=== PATIENT | male | born 1935 | race Caucasian/White ===

== ENCOUNTER → 2017-07-02 | Outpatient (CLI) | payer MEDICARE ==
[2017-07-02 16:19] LABS: Anisocytosis Slight; CH 28.1; CHCM 33.9; HCT 47.9 % (39.0-53.0); HDW 3.18; HGB 15.3 gm/dL (13.0-17.5); MCH 26.9 pg (25.0-35.0); MCV 83.9 fL (80.0-100.0); Mean Platelet Volume 8.1; RBC 5.71 m/uL (4.30-5.90); RDW 16.2 % (11.5-15.5); WBC 6.9 k/uL (3.8-10.6)
[2017-07-02 16:36] LABS: Anion Gap 9 mmol/L; Blood Urea Nitrogen 23 mg/dL (9-20); Carbon Dioxide 25 mmol/L (22-30); Chloride 110 mmol/L (98-107); Non-African American GFR(MDRD) 58 (>60 ml/min/1.73 sqM); Potassium 4.4 mmol/L (3.5-5.1); Sodium 144 mmol/L (137-145)
== END | disposition home or self-care (01) ==
LOC: LABWHC1 15:37 → LABPAT 15:37
PROVIDERS: ATTEND Internal Medicine Interventional Cardiology
DX: Z01.812 Encounter for preprocedural laboratory examination (principal); I25.10 Atherosclerotic heart disease of native coronary artery without angina pectoris
CPT/HCPCS: 36415; 80051; 82565; 84520; 85027

== ENCOUNTER → 2017-07-22 | Day surgery (SDC) | payer MEDICARE ==
[2017-07-20 13:03] VITALS: BMI 32.1
[~2017-07-22] MED LIST: ALPRAZolam 0.25 MG TAB PO PRN; ALPRAZolam 0.5 MG TAB PO PRN; ASPIRIN 325 MG TAB PO STA; ATORVASTATIN 80 MG TAB PO STA; HEPARIN SODIUM 1,000 UN/ML (10ML VL) ONE; IODIXANOL 320 MG/ML 100 ML INTRAARTER ONE; LIDOCAINE 2% INJ 20 MG/ML (20 ML MDV) ONE; LIDOCAINE 2% INJ 20 MG/ML SQ ONE; MIDAZOLAM 2 MG/2 ML VIAL ONE; NITROGLYCERIN SL TABS 0.4 MG TAB SUBLINGUAL PRN; SODIUM CHLORIDE 0.9% 1,000 ML IV SCH; SODIUM CHLORIDE 0.9% 1,000 ML in EMPTY BAG 1 BAG IV ONE; VERAPAMIL 2.5 MG/ML 2 ML AMP ONE; diphenhydrAMINE 50 MG/ML 1 ML VIAL IVP ONE; diphenhydrAMINE 50 MG/ML 1 ML VIAL ONE
[2017-07-22 08:26] VITALS: TEMP 97.7
[2017-07-22] MEDS: IODIXANOL 320 MG/ML 100 ML INTRAARTER ONE ×2 (09:34→10:32)
[2017-07-22] MEDS: MIDAZOLAM 2 MG/2 ML VIAL IV ONE ×2 (09:48→09:51)
[2017-07-22] MEDS: VERAPAMIL SYRINGE (5 MG/10 ML) INTRAARTER ONE ×2 (09:54→10:23)
--- NOTE | 2017-07-22 11:34 | CC ---
CARDIAC CATHETERIZATION REPORT DATE OF SERVICE: 07/22/2017 PROCEDURE: Left coronary angiography. Performed by Dr. Pa Alexander. CLINICAL INFORMATION: Filemon Dukes is 82-year-old gentleman with history of hypertension, hyperlipidemia, symptoms of exertional chest pressure and shortness of breath suggestive of angina. He also has a sick sinus syndrome and a permanent pacemaker. He has significant tortuosity in his iliac system and therefore was advised a cardiac cath from the left radial approach and brought in for the procedure electively after explanation of risks, benefits, and options. PROCEDURE NOTE: Under local anesthesia and strict aseptic precautions, a 6-Malay introducer was placed in the left radial artery. I used a Sunny catheter to perform selective coronary angiography of the RCA. A standard left Delphine catheter was used for selective injection of the left coronary artery. Because of tortuosity and spasm, I could not get into the LV. Although I crossed it with a wire, I could not advance the pigtail catheter. However, I did not check LV pressures. He did not have significant CAD and we will do an echocardiogram to assess LV function. The sheath was taken out and a TR band applied as per protocol. The saturation of the fingers of the left hand was 94%. Patient tolerated the procedure well without complications. The moderate conscious sedation time was 46 minutes. CORONARY ANGIOGRAPHY FINDINGS: RIGHT CORONARY ARTERY: Technically a codominant vessel. No significant disease in the proximal, mid or distal portion and distally bifurcates into PDA and PLV, both of which supply a fair amount of myocardium. No significant disease, only minor irregularities were noted and this is a codominant vessel. LEFT MAIN CORONARY ARTERY: Short, patent, disease-free vessel that bifurcates into LAD and circumflex. LEFT ANTERIOR DESCENDING CORONARY ARTERY: Good caliber vessel, extends along the anterior, supplies a sizable amount of myocardium, gives of diagonal branches proximally. A good-sized septal branch runs all the way to the apex and curves over the apex to supply the inferoapical portion of the left ventricle. The entire LAD system has minor irregularities. No significant disease, gives of diagonal branches. LEFT POSTERIOR CIRCUMFLEX CORONARY ARTERY: Technically a codominant/nondominant vessel, gives off 2 small obtuse marginal branches and distally gives off a posterolateral branch, has minor irregularities. No significant disease. LEFT VENTRICULOGRAM: This was not performed. FINAL IMPRESSION: This patient has a codominant/right-dominant system. He has no significant obstructive disease. LV pressures were not obtained. Echocardiogram will be performed. RECOMMENDATION: Findings were discussed with the patient and family. Continued medical therapy is advised. He will be discharged later on today if he remains stable. IVÁN / SUREKHA: [id number] /
--- NOTE | 2017-07-22 11:40 | LTR ---
DATE OF SERVICE: 07/22/2017 RE: Filemon Dukes Dear Dr. Zach Hernandez; Thank you for the opportunity to participate in the care of Mr. Filemon Dukes. I am please to report to you that he does not have any significant obstructive CAD. He will be discharged later on today if he remains stable. I will consider upgrading his pacemaker from a single dual-chamber down the road. Thank you for the referral and please call for questions. With kindest regards. Sincerely yours, B MD IVÁN Carlson / SAYDAN: [id number] /
[2017-07-22 13:48] VITALS: RESP 18
[2017-07-22 16:02] VITALS: BP 137/66; PULSE 52
--- NOTE | 2017-07-23 08:44 | ECHOF ---
Referral Reason:POST CATH MEASUREMENTS -------- HEIGHT: 175.3 cm WEIGHT: 98.9 kg BP: 147/96 RVIDd: 3.4 cm (< 3.3) IVSd: 1.1 cm (0.6 - 1.1) LVIDd: 5.4 cm (3.9 - 5.3) LVPWd: 1.0 cm (0.6 - 1.1) IVSs: 1.3 cm LVIDs: 5.0 cm LVPWs: 1.0 cm LA Diam: 3.9 cm (2.7 - 3.8) LAESV Index (A-L): 32.45 ml/m Ao Diam: 4.3 cm (2.0 - 3.7) AV Cusp: 2.4 cm (1.5 - 2.6) LA Diam: 3.5 cm (2.7 - 3.8) MV EXCURSION: 20.130 mm (> 18.000) MV EF SLOPE: 121 mm/s (70 - 150) EPSS: 0.6 cm MV E Paul: 0.78 m/s MV DecT: 83 ms MV A Paul: 0.58 m/s MV E/A Ratio: 1.34 RAP: 5.00 mmHg RVSP: 26.95 mmHg FINDINGS -------- Paced rhythm. This was a technically good study. The left ventricular size is normal. There is borderline concentric left ventricular hypertrophy. Overall left ventricular systolic function is mild-moderately impaired with, an EF between 40 - 45 %. DISTAL ANTERIOR AND APICAL HYPOKINESIS The right ventricle is normal in size. LA is midly dilated 29-33ml/m2. The right atrial size is normal. There is mild aortic regurgitation. Mild mitral regurgitation is present. Mbqv-mi-rphyisqz tricuspid regurgitation present. There is no evidence of pulmonary hypertension. The right ventricular systolic pressure, as measured by Doppler, is 26.95mmHg. Trace/mild (physiologic) pulmonic regurgitation. The aortic root size is normal. There is no pericardial effusion. CONCLUSIONS -------- 1. The left ventricular size is normal. 2. The right ventricular systolic pressure, as measured by Doppler, is 26.95mmHg. 3. Trace/mild (physiologic) pulmonic regurgitation. 4. The aortic root size is normal. 5. There is no pericardial effusion. 6. There is borderline concentric left ventricular hypertrophy. 7. Overall left ventricular systolic function is mild-moderately impaired with, an EF between 40 - 45 %. 8. DISTAL ANTERIOR AND APICAL HYPOKINESIS 9. LA is midly dilated 29-33ml/m2. 10. There is mild aortic regurgitation. 11. Mild mitral regurgitation is present. 12. Reof-ek-pgrcjist tricuspid regurgitation present. 13. There is no evidence of pulmonary hypertension. PROGRAMMABLE LOGIC CONTROLLER ASSEMBLER: Camilla Peoples RDCS
== END ==
LOC: CATHCVL 07:52
PROVIDERS: ATTEND Internal Medicine Interventional Cardiology
DX: I35.1 Nonrheumatic aortic (valve) insufficiency (principal); I10 Essential (primary) hypertension; E03.9 Hypothyroidism, unspecified; Z79.82 Long term (current) use of aspirin; Z95.0 Presence of cardiac pacemaker; Z79.899 Other long term (current) drug therapy
CPT/HCPCS: 93306; 93454; 99152; 99153 ×2; C1769 ×2; C1894; J2001; J2250; J1200; Q9967; J1644

== ENCOUNTER → 2018-11-09 | Outpatient (CLI) | payer MEDICARE ==
--- NOTE | 2018-11-09 08:48 | CT ---
EXAMINATION TYPE: CT lumbar spine wo con DATE OF EXAM: 11/09/2018 8:33 AM COMPARISON: Lumbar spine x-ray December 13, 2010 HISTORY: Low back pain with radiation to the buttocks. CT DLP: 1025 mGycm Automated exposure control for dose reduction was used. Unenhanced CT of the lumbar spine was performed. Bone and soft tissue window settings are submitted as well as coronal and sagittal reconstructions. There are 5 lumbar-type vertebra redemonstrated. There is redemonstration of levoconvex scoliosis cecelia tered L3 level more prominent from 2011 x-rays. Vertebral body heights are maintained. There is now m oderate disc space narrowing right L2-L3 level with moderate anterior and lateral spurring with inter susanne progression from 2011 x-ray. There is mild to moderate right lateral narrowing and spurring L4-L5 level with vacuum disc phenomenon. There is additional mild to moderate multilevel anterior and late ral spurring. Sagittal images show posterior disc herniations L2-L3 through L4-L5 levels. Review of axial images shows a T12-L1 and L1-L2 levels to appear within normal limits Axial images at the L2-L3 level show moderate broad disc bulge effacing anterior thecal sac and axial image 38. There is mild facet degenerative changes seen bilaterally. There is mild to moderate bilat eral neural foraminal narrowing noted. Axial images at the L3-L4 level show mild to moderate broad disc bulge effacing anterior thecal sac. There is mild to moderate facet degenerative changes bilaterally. There is mild to moderate bilateral anterior inferior neural foraminal narrowing noted. Axial images at the L4-L5 level show moderate to advanced facet degenerative changes bilaterally. The re is broad-based posterior disc protrusion effacing anterior thecal sac on axial image 59. There is moderate to severe bilateral inferior neural foraminal narrowing, right greater than left. Axial images at L5-S1 level show moderate facet degenerative changes bilaterally. Spinal canal is pre served. There is left foraminal disc herniation and marginal spurring contributing to asymmetric mode rate to severe left-sided neural foraminal narrowing axial image 68 and sagittal images 20 and 21. Ri ght-sided neural foramen is patent. Diverticula are seen in the visualized sigmoid colon. There is partial visualization of normal-appear ing appendix in the right upper pelvis. There appears to be mild plaque of the distal abdominal aorta extending into common iliac branch vessels both which have ectatic course and mild aneurysmal dilata tion only partially imaged. Localizer shows partial visualization of dual lead pacemaker. There are s uspected 2 calculi measuring 2 mm or smaller right kidney for reference coronal image 18 lower pole l evel. IMPRESSION: Levoconvex scoliosis with multilevel degenerative changes most prominent in the mid to lo wer lumbar spine as detailed above.
== END | disposition home or self-care (01) ==
LOC: RADCTMAIN 08:13
PROVIDERS: ATTEND Physical Medicine & Rehabilitation
DX: M47.816 Spondylosis without myelopathy or radiculopathy, lumbar region (principal); M41.86 Other forms of scoliosis, lumbar region
CPT/HCPCS: 72131

== ENCOUNTER → 2019-09-13 | Outpatient (CLI) | payer OTHER ==
--- NOTE | 2019-09-13 10:49 | CT ---
EXAMINATION TYPE: CT chest abdomen w con DATE OF EXAM: 09/13/2019 COMPARISON: None. HISTORY: 1299.3 palpable mass left lower thorax/left upper quadrant abdomen CT DLP: 1299.3 mGycm. Automated Exposure Control for Dose Reduction was Utilized. CONTRAST: CT scan of the thorax and abdomen are performed with oral and with IV Contrast, patient injected with 80 mL of Isovue 300. FINDINGS: LUNGS: Somewhat low lung volumes with left greater than right bibasilar linear scarring and/or atelec tasis. No suspicious focal consolidation. There is 5 x 3 mm subpleural nodule left upper lobe axial i mage 11. No additional greater than 4 mm parenchymal nodules or masses. No pleural effusion or pneumo thorax. MEDIASTINUM: There are no greater than 1 cm hilar or mediastinal lymph nodes. No pericardial effusi on is seen. Mild cardiomegaly with dual lead pacemaker. LIVER/GB: No significant abnormality is appreciated. PANCREAS: No significant abnormality is seen. SPLEEN: No significant abnormality is seen. ADRENALS: No significant abnormality is seen. KIDNEYS: Some simple appearing parapelvic cysts are seen in both kidneys slightly larger and more num erous in the left kidney versus right kidney. BOWEL: Oral contrast reaches level of cecum. No suspicious small or large bowel dilatation. A few sca ttered diverticula in the left colon without CT evidence for acute diverticulitis. LYMPH NODES: No greater than 1cm abdominal lymph nodes are appreciated. OSSEOUS STRUCTURES: Multilevel facet arthropathy lower lumbar spine. Moderate disc space narrowing an d anterior spurring with endplate sclerosis L2-L3 level. Metallic hardware left shoulder causes strea k artifact limiting evaluation at this level. There is moderate fat replaced atrophy of the left subs capularis muscle OTHER: Some tortuous course to the aorta and branch vessels with some ectasia of the common iliac art eries also noted bilaterally. I do not see definitive suspicious solid or cystic mass or fluid collection with particular attention to the left lower thoracic and upper abdominal walters. IMPRESSION: No suspicious mass or fluid collection identified. Targeted marker is not placed by techn ologist to help localize. Small left upper lobe nodule, consider CT follow-up in 1 year time to reass ess.
== END | disposition home or self-care (01) ==
LOC: RADCTMAIN 09:13
DX: R91.1 Solitary pulmonary nodule (principal); R19.02 Left upper quadrant abdominal swelling, mass and lump; R22.2 Localized swelling, mass and lump, trunk
CPT/HCPCS: 82565; 84520; 71260; 74160; 36415; Q9967

== ENCOUNTER → 2020-09-12 | Outpatient (CLI) | payer OTHER ==
--- NOTE | 2020-09-12 20:12 | CT ---
EXAMINATION TYPE: CT chest w con DATE OF EXAM: 09/12/2020 COMPARISON: 09/13/2019 HISTORY: Follow up for solitary pulmonary nodule. CT DLP: 524.4 mGycm Automated exposure control for dose reduction was used. CONTRAST: CT scan of the chest is performed with IV Contrast, patient injected with 100ml mL of Isovue 300. FINDINGS: LUNGS: 5 mm pulmonary nodule left upper lobe laterally image 12 is stable. There is no pleural effusi on or pneumothorax seen. The tracheobronchial tree is patent. MEDIASTINUM: There are no greater than 1 cm hilar or mediastinal lymph nodes. No pericardial effusi on is seen. Thoracic aorta is of normal caliber. The heart is not enlarged. UPPER ABDOMEN: No significant abnormality appreciated. OTHER: No additional significant abnormality is seen. IMPRESSION: Stable 5 mm nodule left upper lobe. Stability over a two-year timeframe should be documented radiogra phically. Follow-up study in one year is advised.
== END | disposition home or self-care (01) ==
LOC: RADCTMAIN 16:18
DX: R91.1 Solitary pulmonary nodule (principal)
CPT/HCPCS: 82565; 84520; 71260; 36415; Q9967

== ENCOUNTER → 2020-12-17 | Outpatient (CLI) | payer OTHER ==
[2020-12-17 19:15] LABS: Basophils # (A) 0.05 X 10*3/uL (0.00-0.10); Basophils % (A) 0.7 %; Eosinophils # (A) 0.18 X 10*3/uL (0.04-0.35); Eosinophils % (A) 2.6 %; HCT 46.8 % (39.6-50.0); HGB 14.6 g/dL (13.0-17.0); Lymphocytes # (A) 2.01 X 10*3/uL (0.90-5.00); Lymphocytes % (A) 29.5 %; MCH 26.3 pg (27.0-32.0); MCHC 31.2 g/dL (32.0-37.0); MCV 84.2 fL (80.0-97.0); Mean Platelet Volume 11.7 fL (9.5-12.2); Monocytes # (A) 0.65 X 10*3/uL (0.20-1.00); Monocytes % (A) 9.5 %; Neutrophils % (A) 57.4 %; Platelet Count 248 X 10*3/uL (140-440); RBC 5.56 X 10*6/uL (4.40-5.60); RDW 16.2 % (11.5-14.5); WBC 6.81 X 10*3/uL (4.50-10.00)
[2020-12-17 21:36] LABS: African American GFR (CKD) 64.4 (60.0-200.0); Albumin 4.1 g/dL (3.80-4.90); Albumin/Globulin Ratio 1.58 (1.60-3.17); Anion Gap 8.1 mmol/L (4.00-12.00); BUN/Creat Ratio 16.67 Ratio (12.00-20.00); Calcium 9.9 mg/dL (8.7-10.3); Carbon Dioxide 27.9 mmol/L (21.6-31.8); Chol/HDL Ratio 5.36; Globulin 2.6 g/dL (1.6-3.3); LDL Cholesterol,Calculated 117.8 mg/dL (0.0-131.0); Non-African American GFR(CKD) 55.6 (60.0-200.0); Potassium 3.9 mmol/L (3.5-5.5); Total Bilirubin 0.5 mg/dL (0.3-1.2); Total Protein 6.7 g/dL (6.2-8.2); VLDL Calculation 39.2 mg/dL (5.00-40.00)
[2020-12-17 21:45] LABS: Prostate Specific Antigen 2.9 ng/mL (0.0-6.5)
== END | disposition home or self-care (01) ==
LOC: LABWHC1 10:28
PROVIDERS: ATTEND Family Medicine
DX: Z00.00 Encounter for general adult medical examination without abnormal findings (principal); N40.0 Benign prostatic hyperplasia without lower urinary tract symptoms
CPT/HCPCS: 36415; 80053; 80061; 84153; 84443; 85025

== ENCOUNTER 2021-02-20 07:52 | Day surgery (SDC) | payer MEDICARE, OTHER ==
[~2021-02-20 07:52] MED LIST changes: -ALPRAZolam 0.25 MG TAB PO PRN; -ALPRAZolam 0.5 MG TAB PO PRN; -ASPIRIN 325 MG TAB PO STA; -ATORVASTATIN 80 MG TAB PO STA; -HEPARIN SODIUM 1,000 UN/ML (10ML VL) ONE; -IODIXANOL 320 MG/ML 100 ML INTRAARTER ONE; -LIDOCAINE 2% INJ 20 MG/ML (20 ML MDV) ONE; -LIDOCAINE 2% INJ 20 MG/ML SQ ONE; -MIDAZOLAM 2 MG/2 ML VIAL ONE; -NITROGLYCERIN SL TABS 0.4 MG TAB SUBLINGUAL PRN; +PREMYELOGRAM MEDICATION REVIEW 1 EACH MISC PO ONE; -SODIUM CHLORIDE 0.9% 1,000 ML IV SCH; -SODIUM CHLORIDE 0.9% 1,000 ML in EMPTY BAG 1 BAG IV ONE; -VERAPAMIL 2.5 MG/ML 2 ML AMP ONE; -diphenhydrAMINE 50 MG/ML 1 ML VIAL IVP ONE; -diphenhydrAMINE 50 MG/ML 1 ML VIAL ONE
[2021-02-20] MEDS ORDERED: diazePAM 5 MG TAB PO STA (08:57)
[2021-02-20 09:03] VITALS: RESP 16; TEMP 98.3
[2021-02-20] MEDS ORDERED: HYDROcodone/APAP 5-325MG 1 EACH TAB PO PRN (09:50)
--- NOTE | 2021-02-20 12:15 | CT ---
EXAMINATION TYPE: CT lumbar spine w con DATE OF EXAM: 02/20/2021 COMPARISON: CT lumbar spine November 09, 2018 HISTORY: low back pain. History of prior laminectomy surgery years ago. Known pacemaker. CT DLP: 1251.5 mGycm Automated exposure control for dose reduction was used. CONTRAST: CT scan of the lumbar is performed without IV but with intrathecal contrast, patient injected with 12 mL of Isovue M[address] intr[address] of the lumbar spine was performed. Bone and soft tissue window settings are submitted as well as coronal and sagittal reconstructions. Findings: There are 5 lumbar-type vertebra redemonstrated. There is redemonstration of levoconvex sco liosis centered L3 level not significant change from prior. Vertebral body heights are stable and sat isfactory. Successful intrathecal contrast injection noted. There is persistent moderate disc space n arrowing and endplate sclerosis along with moderate right lateral spurring right L2-L3 level with add itional anterior spurring is redemonstrated and felt Stable. There is focal moderate right lateral na rrowing and spurring L4-L5 level with vacuum disc phenomenon redemonstrated. There is additional mild to moderate multilevel anterior and lateral spurring redemonstrated. Conus medullaris appears to terminate at T12-L1 disc space level sagittal image 40. There is 4 to 5 m m round extramedullary intradural lesion in the left lateral aspect spinal canal image 44 series 7 an d axial image 16 correlating with coronal image 51 of uncertain etiology. Review of axial images shows a T12-L1 and L1-L2 levels to remain within normal limits Axial images at the L2-L3 level show stable guqw-hq-cszgcssq broad disc bulge mildly effacing anterio r thecal sac on axial image 34. There is mild facet degenerative changes redemonstrated bilaterally. There is mild to moderate bilateral anterior inferior neural foraminal narrowing redemonstrated. No s ignificant change from prior. Axial images at the L3-L4 level redemonstrated mild to moderate broad disc bulge mildly effacing ante rior thecal sac. There are mild to moderate facet degenerative changes bilaterally redemonstrated. Th ere is mild to moderate bilateral anterior inferior neural foraminal narrowing redemonstrated. No sig nificant change from prior. Axial images at the L4-L5 level redemonstrated moderate to advanced facet degenerative changes bilate rally. There is moderate to advanced broad-based left paracentral disc protrusion effacing anterolate ral thecal sac on axial image 55 extending to lateral recess and left foramen. There is moderate to s evere bilateral inferior neural foraminal narrowing redemonstrated. Axial images at L5-S1 level redemonstrate moderate facet degenerative changes bilaterally. Spinal can al is preserved. There is tiny central disc herniation and marginal spurring contributing to asymmetr ic moderate left-sided neural foraminal narrowing axial image 64 and sagittal image 48 on current miriam dy. Right-sided neural foramen is patent. No significant change from prior. Laminectomy defects with partial spinous process resection L2 into superior L3 level noted similar to prior. Diverticula are redemonstrated in the visualized sigmoid colon. There is partial visualization of nor mal-appearing appendix in the right upper pelvis redemonstrated. There appears to be mild calcified p laque of the distal abdominal aorta extending into common iliac branch vessels both which have ectati c course and mild aneurysmal dilatation only partially imaged. Localizer shows partial visualization of dual lead pacemaker. There are suspected 2 calculi measuring to 3 mm right kidney for reference co richard image 35 upper pole level. Ulzy-az-kjumzpbr generalized fat replaced atrophy of pancreas on cu rrent study. IMPRESSION: Levoconvex scoliosis with multilevel degenerative changes most prominent in the mid to lo wer lumbar spine as detailed above. No significant interval degenerative progression from prior study . Note is made of 4 to 5 mm round extra medullary intradural lesion left lateral superior T1 level of uncertain etiology.
--- NOTE | 2021-02-20 12:40 | FL ---
EXAMINATION TYPE: FL myelogram lumbosacral DATE OF EXAM: 02/20/2021 COMPARISON: CT lumbar spine November 09, 2018 HISTORY: Low back pain. Known pacemaker. Technique: Fluoroscopic assisted myelogram. A total of 48 seconds of fluoroscopic time utilized. 4 sp ot images saved to PACS. Findings: Informed consent was obtained and all the patient's questions were answered. The superior L3 level was localized under fluoroscopy as this is site of laminectomy defect on review of prior CT. Underlying scoliosis is redemonstrated. Standard sterile technique was utilized as well as appropriate local lidocaine as anesthetic. Spinal needle was introduced into the thecal sac unde r fluoroscopic guidance and 12 mL's of Isovue-M200 was injected. There is documentation of successful spinal canal injection. Vital signs monitored before during and after procedure. The patient tolerated the procedure well and left the department in stable condition. CT myelography is to follow. Patient kept in hospital for short stay after CT abdomen discharged home in stable condition. IMPRESSION: Successful uncomplicated myelogram for subsequent CT.
[2021-02-20 12:58] VITALS: BP 172/88; PULSE 58
== END 2021-02-20 12:30 | disposition home or self-care (01) ==
LOC: RADPROMAIN 07:52
PROVIDERS: ATTEND Specialist
DX: G89.29 Other chronic pain (principal); M54.5 Low back pain; Z95.0 Presence of cardiac pacemaker
CPT/HCPCS: 62304; 72132; Q9966

== ENCOUNTER 2022-02-16 08:59 | Emergency (ER) | payer MEDICARE ==
[2022-02-16 15:01] LABS: Basophils # (A) 0.1 k/uL (0-0.2); Basophils % (A) 1 %; Eosinophils # (A) 0.2 k/uL (0-0.7); Eosinophils % (A) 3 %; HGB 14.8 gm/dL (13.0-17.5); Lymphocytes # (A) 2.2 k/uL (1.0-4.8); Lymphocytes % (A) 26 %; MCH 27.3 pg (25.0-35.0); MCHC 32.2 g/dL (31.0-37.0); Monocytes # (A) 0.5 k/uL (0-1.0); Monocytes % (A) 6 %; Neutrophils # (A) 5.5 k/uL (1.3-7.7); Neutrophils % (A) 63 %; Platelet Count 193 k/uL (150-450); RBC 5.42 m/uL (4.30-5.90); RDW 15.1 % (11.5-15.5); WBC 8.7 k/uL (3.8-10.6)
[2022-02-16 15:08] LABS: INR 0.9 (<1.2); Partial Thromboplastin Time 25.5 sec (22.0-30.0); Prothrombin Time 10.3 sec (9.0-12.0)
[2022-02-16 15:54] LABS: Calcium 8.8 mg/dL (8.4-10.2); Magnesium 2.2 mg/dL (1.6-2.3); Phosphorus 3.8 mg/dL (2.5-4.5); Potassium 4.1 mmol/L (3.5-5.1); Total Bilirubin 0.6 mg/dL (0.2-1.3)
--- NOTE | 2022-02-16 16:12 | XR ---
EXAMINATION TYPE: XR chest 2V DATE OF EXAM: 02/16/2022 COMPARISON: 02/22/2015 TECHNIQUE: PA and lateral views submitted. HISTORY: Dizziness FINDINGS: The lungs are clear and there is no pneumothorax, pleural effusion, or focal pneumonia. Atheroscler otic change aorta. No overt failure. Postsurgical change left shoulder. Arthropathy right shoulder. D iffuse osteopenia. Hypertrophic and degenerative change of the spine. IMPRESSION: 1. No acute process.
== END 2022-02-16 15:25 | disposition home or self-care (01) ==
LOC: EC 08:59
DX: R42 Dizziness and giddiness (principal)
CPT/HCPCS: 36415; 71046; 80053; 82150; 83605; 83690; 83735; 84100; 84484; 85025; 85610; 85730; 93005; 99284

== ENCOUNTER → 2022-07-07 | Outpatient (CLI) | payer MEDICARE ==
--- NOTE | 2022-07-07 14:41 | CT ---
EXAMINATION TYPE: CT brain wo con DATE OF EXAM: 07/07/2022 COMPARISON: None HISTORY: Headache CT DLP: [address] of the brain was performed. The ventricles, basal cisterns and sulci overlying the cerebral convexities demonstrate mild enlargem ent. There is no evidence for intracranial hemorrhage or sulcal effacement. There is decreased attenuation about the periventricular white matter and deep white matter of both c erebral hemispheres, compatible with chronic small vessel ischemia. Differential diagnosis does inclu de demyelination. No mass effects are seen.No midline shift. Osseous calvarium is intact. If symptoms persist consider MRI. IMPRESSION: 1. Age related atrophic and chronic small vessel ischemic change without acute intracranial process s een at this time.
--- NOTE | 2022-07-07 15:07 | CT ---
EXAMINATION TYPE: CT angio head neck DATE OF EXAM: 07/07/2022 HISTORY: Headache and unsteady gait. COMPARISON: None. CT DLP: 475 mGycm. Automated Exposure Control for Dose Reduction was Utilized. TECHNIQUE: CTA scan of the head and neck is performed with IV Contrast, patient injected with 65 mL of Isovue 370, axial images are obtained, coronal and sagittal reformatted images are reviewed. 3D re constructed images are created on an independent workstation and reviewed. FINDINGS: Carotid/Vascular Structures: Suboptimal bolus with most dense contrast in the pulmonary arteries and in SVC. Ascending aortic aneurysm up to 4.5 cm. No significant focal plaque in the aortic arch. Three -vessel origin without significant stenosis. Normal origin right common carotid artery from the right brachiocephalic artery. No significant plaque or stenosis along the common carotid arteries bilaterally. Patent external mcdonough tid arteries bilaterally without significant stenosis. No significant stenosis carotid bulb level denise aterally. Mild distal calcified plaque in the internal carotid arteries. No significant stenosis. Sma ll caliber but patent anterior communicating artery. No significant focal stenosis within the anterio r circulation. There are codominant vertebral arteries filling the basilar artery. There are patent b ilateral posterior indicating arteries. No significant focal stenosis or aneurysm in the posterior ci rculation. Other: Partial visualization of pacemaker leads. There is surgical change left shoulder noted on loca lizer. IMPRESSION: No significant abnormality is seen. NASCET criteria was used in interpretation of this exam?
== END | disposition home or self-care (01) ==
LOC: RADCTMAIN 10:50
PROVIDERS: ATTEND Psychiatry & Neurology Neurology
DX: I67.82 Cerebral ischemia (principal); G31.9 Degenerative disease of nervous system, unspecified; H81.10 Benign paroxysmal vertigo, unspecified ear
CPT/HCPCS: 82565; 84520; 70496; 70450; 70498; 36415; Q9967

== ENCOUNTER → 2022-07-16 | Outpatient (CLI) | payer MEDICARE ==
[2022-07-16 11:06] VITALS: BP 130/72; RESP 18; TEMP 98.1
[2022-07-16 12:09] VITALS: PULSE 57
--- NOTE | 2022-07-16 14:52 | P.PAINPG ---
PQRS Measure Charge Sheet Comment: HISTORY OF PRESENT ILLNESS: 87 yr old male w daughter at side as a referral from Dr. Cabrera presents today w severe and chronic neck pain secondary to occipital neuralgia and cervicogenic headache for evaluation. Pt states his pain level is currently at 1/10 in intensity, constant, sharp in the base of the head w radiation of sharp pain, up to 10/10 in intensity w flexion, up the L scalp. Pain is palliated w meds (Tylenol, Lidoderm patches), injections in the past, ice, heat, laying flat. PMH: Unstable Angina, HTN, CAD, Hyperlipidemia, Hypothyroidism, OA, Macular Degeneration PSH: Cardiac Cath (2017), LESIs, Lumbar RFAs, Lumbar Laminectomy (2019), Spinal Tumor Resection, Defibrillator SH: Negative x 3. and lives w spouse. Use of a wheelchair for ambulation. FH: Non contributory All: NKDA Meds: See list REVIEW OF ORGAN SYSTEMS: CONSTITUTIONAL: No fevers or chills. No recent weight loss. NEUROLOGICAL: + numbness and tingling along the distal extremities. No seizure disorders or headaches. MUSCULOSKELETAL: + pain PSYCHIATRIC: Denies current depression or suicidal thoughts. Physical Examinations : Constitutional : Cooperative , not in acute distress . Neurologic : Cranial nerve II to XII intact. No focal neurological deficits. Psychiatric : alert & oriented x 3. Matching mood & appropriate affect. Judgment & insight intact. Musculoskeletal : Cervical Spine +L G.O.N. TTP Motor strength in the deltoid and biceps: Normal right side. Normal Left side Motor strength biceps and the wrist extensors: Normal right side . Normal left side Motor strength in the triceps muscle: Normal right side. Normal left side Deep tendon reflexes: Normal at the biceps. Normal at Brachioradialis. Normal at triceps Vertebral body tenderness to deep palpation over Cervical facet loading test: positive bilaterally Spurling test: positive bilaterally Neck distraction test: positive bilaterally Cheyv sign: positive bilaterally Lumbar spine Motor strength lower extremities ,thigh and legs 5/5 Right side , 5/5 Left side Deep tendon reflexes : Normal Knee Jerk. Normal Ankle Jerk Vertebral body tenderness over Lumbar facet Loading Test: positive Right / positive Left Range of motion of the lumbar spine Flexion 30 degrees, extension 10 degrees Straight Leg Raise test: Left/ Right positive at degree Yumiko test: positive right / positive left. Severe tenderness over the Sacroiliac joint on the Right / Left sides Gaenslen test: positive bilaterally Seated flexion test: positive bilaterally. Sacral spine : Severe tenderness over the Sacroiliac joint: right side / left side Range of motion: Flexion of the lumbar spine <60 degrees Range of motion: Extension of the lumbar spine <20 degrees Gaenslen's Test positive Benjamin's Test positive Yumiko test: positive right side / left side Thigh Thrust Test Sacral Thrust Test Imaging: Computed tomography scan without contrast of the lumbar spine from 02/20/21 reviewed Assessment/ Plan : Occipital Neuralgia, Cervicogenic Headache Recommendation of L G.O.N. injection #1. May need a series, up until RFA, for optimal pain relief. Risks, benefits of procedure discussed and patient verbalized understanding. Admits to Eliquis use or medical history of diabetes. Protocol for discontinuation/ continuation of medications rhianna procedure discussed. All questions answered. I have spent greater than 30 minutes on patient care today. Dr Long was available by phone for the evaluation of this patient. The time was used to review the medical records including relevant urine studies and Prescription history (MAPs), review of the available imaging, evaluation and examination of the patient, coordination of care with the medical staff and if applicable ref erring physicians, as well as creation of the medical record - Pain Location Left Upper Neck Non-Pharmacological Interventions: Heat, Ice, Position/Reposition Pharmacological Interventions: PRN Medication, Topical Medication PQRS Narrative: Smoking Status Never smoker Home Medications: Ambulatory Orders Levothyroxine Sodium [Synthroid] 50 mcg PO DAILY 05/26/15 amLODIPine [Norvasc] 5 mg PO DAILY 05/26/15 lisinopriL [Prinivil] 20 mg PO BID 05/26/15 Furosemide [Lasix] 20 mg PO DAILY 07/20/17 Metoprolol Tartrate 50 mg PO BID 07/20/17 Apixaban [Eliquis] 5 mg PO BID 02/05/21 Naproxen [Naprosyn] 500 mg PO Q12HR 02/05/21 methocarbamoL [Robaxin-750] 750 mg PO BID 02/05/21 Controlled Substance Measures - Controlled Substance Measures Is patient prescribed a controlled substance at discharge?: No
== END ==
LOC: PNWHC3 10:27
PROVIDERS: ATTEND Specialist
DX: M54.81 Occipital neuralgia (principal); I10 Essential (primary) hypertension; I25.10 Atherosclerotic heart disease of native coronary artery without angina pectoris; E78.5 Hyperlipidemia, unspecified; E03.9 Hypothyroidism, unspecified; E11.9 Type 2 diabetes mellitus without complications; M19.90 Unspecified osteoarthritis, unspecified site; Z79.890 Hormone replacement therapy; Z79.01 Long term (current) use of anticoagulants
CPT/HCPCS: 99211

== ENCOUNTER → 2022-08-14 | Outpatient (CLI) | payer MEDICARE ==
--- NOTE | 2022-08-14 09:57 | XR ---
EXAMINATION TYPE: XR thoracic spine 2V DATE OF EXAM: 08/14/2022 8:54 AM INDICATION: Patient age:Male; 87 years old; Reason for study: G89.29 other chronic pain; COMPARISON: CT chest 09/12/2020 TECHNIQUE: 2 views of the thoracic spine in Frontal and lateral projections. FINDINGS: Multilevel disc degeneration changes with disc space narrowing, osteophytes are present throughout th e spine. No definitive evidence for acute fracture. There is wedge compression deformities throughout the thoracic spine. Shoulder arthroplasty changes are noted. Cardiac conduction leads are present. T he heart is enlarged for size. There is suspected COPD changes within the lungs. IMPRESSION: Mild to moderate disc degeneration changes with multiple wedge deformities. Consider CT evaluation of the thoracic spine if this concern for acute compression fractures.
== END | disposition home or self-care (01) ==
LOC: RADXRMAIN 08:32
PROVIDERS: ATTEND Physical Medicine & Rehabilitation
DX: M51.34 Other intervertebral disc degeneration, thoracic region (principal); M43.8X4 Other specified deforming dorsopathies, thoracic region
CPT/HCPCS: 72070

== ENCOUNTER 2022-08-20 06:26 | Day surgery (SDC) | payer MEDICARE ==
[~2022-08-20 06:26] MED LIST changes: +LACTATED RINGERS 1,000 ML IV SCH; +LIDOCAINE 1% (10MG/ML) FOR IV START INTRADERMA PRN; -PREMYELOGRAM MEDICATION REVIEW 1 EACH MISC PO ONE
[2022-08-20 06:45] VITALS: TEMP 97.3
[2022-08-20] MEDS ORDERED: ROPIVACAINE 5 MG/ML 20 ML AMPULE ONE (07:40)
[2022-08-20] MEDS ORDERED: methylPREDNISolone ACETATE 40 MG/ML 1 ML VIAL ONE (07:40)
--- NOTE | 2022-08-20 07:51 | P.PCN ---
Date of Procedure: 08/20/22 Procedure(s) Performed: Preoperative diagnoses= 1- left Greater occipital neuralgia. 2-cervicogenic headache Postoperative diagnoses= same as preoperative diagnosis. Procedure= Left Greater occipital nerve block Anesthesia=none . Estimated blood loss=minimal. Procedure indication= the patient had a history of severe chronic neck pain ,and headache, diagnosed with occipital neuralgia exam was positive for severe tenderness over the occipital nerve on the left side , he will be a good sana date left occipital nerve block, patient failed conservative management Procedure description= the patient was seen and identified in the preoperative holding area, risks and benefits and alternative of the procedure and possible complications discussed with the patient, and he agreed with the preceding, patient signed the consent, an IV was started, and vital signs were monitored and were stable throughout the procedure, patient was placed in the sitting position or table and the neck area was prepped and draped with a sterile fashion, vital signs were closely monitored during the procedure, 25-gauge needle advanced 1 inch lateral to the occipital protuberance on the Left side, at the location of the Left occipital nerve , then after negative aspiration for heme and CSF and there was no paresthesia during the injection, 8 ml of Robivacaine 0.5% and 40 mg of Depo-Medrol injected after negative aspiration, the needle removed. Patient tolerated the procedure well without any complication, The patient returned to supine position after the back was cleaned and a Band- Aid applied, the patient transported to recovery room in stable condition and he was monitored for 30 minutes before he was discharged home and then patient was reexamined before going home and patient was discharged in stable condition and patient will follow up with the pain clinic in a few weeks.
[2022-08-20 08:00] VITALS: RESP 16
[2022-08-20 08:11] VITALS: BP 152/98; PULSE 58
== END 2022-08-20 08:12 | disposition home or self-care (01) ==
LOC: ORPAIN 06:26
PROVIDERS: ATTEND Specialist
DX: M54.81 Occipital neuralgia (principal); G44.86 Cervicogenic headache; G89.29 Other chronic pain
CPT/HCPCS: 64405; J1030; J2795

== ENCOUNTER → 2022-08-31 | Outpatient (CLI) | payer MEDICARE ==
--- NOTE | 2022-08-31 10:40 | CT ---
EXAMINATION TYPE: CT thoracic spine wo con DATE OF EXAM: 08/31/2022 COMPARISON: Thoracic spine x-ray August 14, 2022. HISTORY: chronic pain, pre op, no injury CT DLP: 1436 mGycm Automated exposure control for dose reduction was used. FINDINGS: No acute fracture or dislocation in the thoracic spine. [id number] multilevel disc space narrow ing in the mid to lower thoracic spine is present mild to moderate multilevel anterior lateral spurri ng is seen. Spinal canal is grossly preserved. Slight scoliotic curvature centered in the lumbar spin e on coronal images. Visualized ribs are intact bilaterally. Metallic artifact from left shoulder mary matthew is partially imaged. There is dual lead pacemaker redemonstrated. Visualized lungs and abdomen s how no suspicious abnormality. More prominent spurring and disc space narrowing at L2-L3 level noted. IMPRESSION: Chronic degenerative changes as detailed above.
== END | disposition home or self-care (01) ==
LOC: RADCTMAIN 09:42
PROVIDERS: ATTEND Physical Medicine & Rehabilitation
DX: M51.24 Other intervertebral disc displacement, thoracic region (principal); M41.86 Other forms of scoliosis, lumbar region; Z98.890 Other specified postprocedural states
CPT/HCPCS: 72128

== ENCOUNTER → 2022-09-07 | Outpatient (CLI) | payer MEDICARE ==
[2022-09-07 12:23] VITALS: BP 120/78; PULSE 59; RESP 18; TEMP 97.9
--- NOTE | 2022-09-07 14:39 | P.PAINPG ---
PQRS Measure Charge Sheet Comment: A 87 yr old male with a history of severe and chronic HAs pain secondary to occipital neuralgia and cervicogenic RAUSCH presents today for evaluation s/p L MILDRED injection. Pt states he experienced 100% pain relief x 3 wks s/p procedure. Pain level is currently at 0/10 in intensity. Pain has no provocation at this time. Pain is alleviated with injections. Interventional pain procedures completed include L MILDRED x1 Patient is currently on Denies Patient denies any side effects of the medication(s), denies excessive drowsiness or sleepiness, denies suicidal ideation and reports that the current pain medication is helping to control the pain and improve activities of daily living. Patient denies any motor or sensory deficits. Patient denies any fever or night sweats, denies any change in the bowel movements or urination. Physical Examination: -Constitutional: Cooperative. Not in acute distress . - Neurologic: Cranial nerve II to XII intact. No focal neurological deficits. - Psychatric: Alert & oriented x 3. Matching mood & appropriate affect. Judgment and insight intact. - Musculoskeletal: Cervical spine: Muscle bulk/ tone/ strength in the bilateral upper extremities normal Vertebral body tenderness to palpation over Spurling test positive Distraction test positive Facet loading test positive Thoracic spine Muscle bulk / tone/ strength in the bilateral paraspinal muscles normal Vertebral body tender to palpation over Facet loading test positive Lumbar spine: Motor bulk/ tone/ strength lower extremities , thigh and legs : 5/5 Deep tendon reflexes : Normal Knee Jerk. Normal Ankle Jerk . Vertebral body tenderness to palpation over Lumbar Facet Loading Test positive Straight Leg Raise: positive at 30 degrees right side/ left side Gaenslen's Test positive Sacral spine : Severe tenderness over the Sacroiliac joint: right side / left side Range of motion: Flexion of the lumbar spine <60 degrees Range of motion: Extension of the lumbar spine <20 degrees Gaenslen's Test positive Yumiko test: positive right side / left side Thigh Thrust Test Sacral Thrust Test Assessment and plan: Chronic RAUSCH pain secondary to occipital neuralgia, cervicogenic headache Patient exhibited optimal and substantial pain relief s/p procedure. He may follow up at our clinic on an as needed basis. All patient questions answered I have spent less than 30 minutes on patient care today. Dr Long was available by phone for the evaluation of this patient. The time was used to review the medical records including relevant urine studies and Prescription history (MAPs), review of the available imaging, evaluation and examination of the patient, coordination of care with the medical staff and if applicable referring physicians, as well as creation of the medical record PQRS Narrative: Smoking Status Never smoker Hx Alcohol Use (MH) No Home Medications: Ambulatory Orders Levothyroxine Sodium [Synthroid] 50 mcg PO DAILY 05/26/15 amLODIPine [Norvasc] 5 mg PO DAILY 05/26/15 lisinopriL [Prinivil] 20 mg PO BID 05/26/15 Furosemide [Lasix] 20 mg PO DAILY 07/20/17 Apixaban [Eliquis] 5 mg PO BID 02/05/21 Metoprolol Succinate (ER) [Toprol Xl] 25 mg PO DAILY 08/19/22 Vit C/E/Cuperic/Zinc/Lutein [Preservision Lutein Softgel] 1 each PO DAILY 08/19/22 Controlled Substance Measures - Controlled Substance Measures Is patient prescribed a controlled substance at discharge?: No
== END ==
LOC: PNWHC3 11:11
PROVIDERS: ATTEND Specialist
DX: M54.81 Occipital neuralgia (principal); G44.86 Cervicogenic headache
CPT/HCPCS: 99211

== ENCOUNTER 2023-02-21 12:46 | Observation (INO) | payer MEDICARE ==
[2023-02-21] MEDS ORDERED: ASPIRIN 81 MG PO STA (13:10)
[2023-02-21] MEDS ORDERED: NITROGLYCERIN OINT 1 INCH/GM PACKET TOPICAL STA (13:10)
--- NOTE | 2023-02-21 13:14 | ED ---
General Adult HPI - General Chief complaint: Chest Pain Stated complaint: Chest Pain Time Seen by Provider: 02/21/23 12:48 Source: patient, EMS, RN notes reviewed Mode of arrival: EMS Limitations: no limitations - History of Present Illness Initial comments: Patient is a pleasant 87-year-old male presenting to the emergency department with concerns with chest discomfort. Onset of symptoms was last night. Symptoms got worse while at [employer]. Discomfort feels like tightness or sharpness left chest without radiation. No dyspnea. No diaphoresis. Patient was nauseated earlier. Symptoms initially improved with aspirin and nitroglycerin by EMS. Symptoms are very mild at this time. No history of similar symptoms previous. - Related Data Home Medications Medication Instructions Recorded Confirmed Levothyroxine Sodium [Synthroid] 50 mcg PO DAILY 05/26/15 02/21/23 amLODIPine [Norvasc] 5 mg PO DAILY 05/26/15 02/21/23 lisinopriL [Prinivil] 20 mg PO BID 05/26/15 02/21/23 Furosemide [Lasix] 20 mg PO DAILY 07/20/17 02/21/23 Apixaban [Eliquis] 5 mg PO BID 02/05/21 02/21/23 Vit C/E/Cuperic/Zinc/Lutein 1 tab PO DAILY 08/19/22 02/21/23 [Preservision Lutein Softgel] Acetaminophen [Tylenol] 650 mg PO Q6H PRN 02/21/23 02/21/23 Glucosamine/Chondr Ferreira A Sod [Osteo 1 tab PO DAILY 02/21/23 02/21/23 Bi-Flex Caplet] Ibuprofen [Motrin] 800 mg PO TID 02/21/23 02/21/23 Lidocaine 5% Patch [Lidoderm] 1 patch TOPICAL DAILY PRN 02/21/23 02/21/23 Metoprolol Succinate (ER) [Toprol 50 mg PO DAILY 02/21/23 02/21/23 Xl] Multivit-Min/FA/Lycopen/Lutein 1 tab PO DAILY 02/21/23 02/21/23 [Centrum Silver Men Tablet] Allergies Allergy/AdvReac Type Severity Reaction Status Date / Time No Known Allergies Allergy Verified 02/21/23 15:14 Review of Systems ROS Statement: Those systems with pertinent positive or pertinent negative responses have been documented in the HPI. ROS Other: All systems not noted in ROS Statement are negative. Constitutional: Denies: fever Eyes: Denies: eye pain ENT: Denies: ear pain Respiratory: Denies: dyspnea Cardiovascular: Reports: as per HPI, chest pain Endocrine: Denies: fatigue Gastrointestinal: Reports: nausea. 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 Past Anesthesia/Blood Transfusion Reactions: No Reported Reaction Additional Past Anesthesia/Blood Transfusion Reaction / Comment(s): no blood tranfusions Type of Cardiac Device: Permanent Pacemaker Device Placement Date:: 06/08 Past Psychological History: Anxiety Smoking Status: Never smoker Past Alcohol Use History: None Reported Past Drug Use History: None Reported - Past Family History Mother Family Medical History: No Reported History Additional Family Medical History / Comment(s): aneurysm Father Family Medical History: No Reported History General Exam Limitations: no limitations General appearance: alert, in no apparent distress Head exam: Present: normocephalic Eye exam: Present: normal appearance Neck exam: Present: normal inspection Respiratory exam: Present: normal lung sounds bilaterally. Absent: chest wall tenderness Cardiovascular Exam: Present: regular rate, normal rhythm Expanded Peripheral pulses: 2+: Radial (R), Radial (L), Posterior Tibialis (R), Posterior Tibialis (L) GI/Abdominal exam: Present: soft. Absent: tenderness Extremities exam: Present: normal inspection. Absent: pedal edema, calf tenderness Neurological exam: Present: alert Psychiatric exam: Present: normal affect, normal mood Skin exam: Present: normal color Course Vital Signs 02/21/23 12:55 Temperature 97.9 F Pulse Rate 56 L Respiratory 22 Rate Blood Pressure 132/87 O2 Sat by Pulse 95 Oximetry EKG Findings - EKG Results: EKG: interpreted by ERMD (For screening AV block with a KS of 232.), sinus rhythm, normal axis, normal QRS, normal ST/T EKG shows: bradycardia Medical Decision Making - Medical Decision Making Was pt. sent in by a medical professional or institution (, [facility], SOLAR THERMAL TECHNICIAN, urgent care, hospital, or jail...) When possible be specific @ -No Did you speak to anyone other than the patient for history (EMS, parent, family, police, friend...)? What history was obtained from this source @ -No Did you review nursing and triage notes (agree or disagree)? Why? @ -I reviewed and agree with nursing and triage notes Were old charts reviewed (outside hosp., previous admission, EMS record, old EKG, old radiological studies, urgent care reports/EKG's, jail records)? Report findings @ -No old charts were reviewed Differential Diagnosis (chest pain, altered mental status, abdominal pain women, abdominal pain men, vaginal bleeding, weakness, fever, dyspnea, syncope, headache, dizziness, GI bleed, back pain, seizure, CVA, palpatations, mental health)? @ -Differential Chest Pain: Stable Angina, Unstable Angina, STEMI, NSTEMI Aortic Dissection, Pneumothorax, Musculoskeletal, Esophageal Spasm GERD, Cholecystitis, Pancreatitis, Zoster, this is not meant to be an all-inclusive list. EKG interpreted by me (3pts min.). @ -As above X-rays interpreted by me (1pt min.). @ -Chest x-ray shows cardiomegaly CT interpreted by me (1pt min.). @ -None done U/S interpreted by me (1pt. min.). @ -None done What testing was considered but not performed or refused? (CT, X-rays, U/S, labs)? Why? @ -None What meds were considered but not given or refused? Why? @ -None Did you discuss the management of the patient with other professionals (professionals i.e. , [facility], SOLAR THERMAL TECHNICIAN, lab, RT, psych nurse, web content & social media manager, steam cleaning machine operator, teacher, search and rescue officer, egg caser)? Give summary @ -Case was discussed with Dr. Borges, who will admit For Dr. Hernandez Was smoking cessation discussed for >3mins.? @ -No Was critical care preformed (if so, how long)? @ -No Were there social determinants of health that impacted care today? How? (Homelessness, low income, unemployed, alcoholism, drug addiction, transportation, low edu. Level, literacy, decrease access to med. care, alf, rehab)? @ -No Was there de-escalation of care discussed even if they declined (Discuss DNR or withdrawal of care, Hospice)? DNR status @ -No What co-morbidities impacted this encounter? (DM, HTN, Smoking, COPD, CAD, Cancer, CVA, ARF, Chemo, Hep., AIDS, mental health diagnosis, sleep apnea, morbid obesity)? @ -None Was patient admitted / discharged? Hospital course, mention meds given and route, prescriptions, significant lab abnormalities, going to OR and other pertinent info. @ -Patient reevaluated and updated. Patient feeling better at this time. Patient be admitted Undiagnosed new problem with uncertain prognosis? @ -No Drug Therapy requiring intensive monitoring for toxicity (Heparin, Nitro, Insulin, Cardizem)? @ -No Were any procedures done? @ -No Diagnosis/symptom? @ -Chest pain Acute, or Chronic, or Acute on Chronic? @ -Acute Uncomplicated (without systemic symptoms) or Complicated (systemic symptoms)? @ -default Side effects of treatment? @ -No Exacerbation, Progression, or Severe Exacerbation? @ -No Poses a threat to life or bodily function? How? (Chest pain, USA, IA, pneumonia, PE, COPD, DKA, ARF, appy, cholecystitis, CVA, Diverticulitis, Homicidal, Suici flory, threat to staff... and all critical care pts) @ -No - Lab Data Result diagrams: 02/21/23 13:14 02/21/23 13:14 Lab Results 02/21/23 02/21/23 02/21/23 Range/Units 13:14 13:14 13:14 WBC 7.9 (3.8-10.6) k/uL RBC 5.24 (4.30-5.90) m/uL Hgb 14.1 (13.0-17.5) gm/dL Hct 43.6 (39.0-53.0) % MCV 83.2 (80.0-100.0) fL MCH 26.8 (25.0-35.0) pg MCHC 32.2 (31.0-37.0) g/dL RDW 15.4 (11.5-15.5) % Plt Count 270 (150-450) k/uL MPV 8.3 Neutrophils % 61 % Lymphocytes % 27 % Monocytes % 6 % Eosinophils % 2 % Basophils % 0 % Neutrophils # 4.8 (1.3-7.7) k/uL Lymphocytes # 2.2 (1.0-4.8) k/uL Monocytes # 0.5 (0-1.0) k/uL Eosinophils # 0.2 (0-0.7) k/uL Basophils # 0.0 (0-0.2) k/uL PT 10.2 (9.0-12.0) sec INR 1.0 (<1.2) APTT 23.4 (22.0-30.0) sec D-Dimer 0.32 (<0.60) mg/L FEU Sodium 143 (137-145) mmol/L Potassium 4.1 (3.5-5.1) mmol/L Chloride 106 (98-107) mmol/L Carbon Dioxide 25 (22-30) mmol/L Anion Gap 12 mmol/L BUN 21 H (9-20) mg/dL Creatinine 1.06 (0.66-1.25) mg/dL Est GFR (CKD-EPI)AfAm 74 (>60 ml/min/1.73 sqM) Est GFR (CKD-EPI)NonAf 64 (>60 ml/min/1.73 sqM) Glucose 98 (74-99) mg/dL Calcium 8.9 (8.4-10.2) mg/dL Magnesium 2.2 (1.6-2.3) mg/dL Total Bilirubin 0.4 (0.2-1.3) mg/dL AST 26 (17-59) U/L ALT 25 (4-49) U/L Alkaline Phosphatase 82 (38-126) U/L Troponin I (0.000-0.034) ng/mL Total Protein 7.0 (6.3-8.2) g/dL Albumin 4.2 (3.5-5.0) g/dL 02/21/23 Range/Units 13:14 WBC (3.8-10.6) k/uL RBC (4.30-5.90) m/uL Hgb (13.0-17.5) gm/dL Hct (39.0-53.0) % MCV (80.0-100.0) fL MCH (25.0-35.0) pg MCHC (31.0-37.0) g/dL RDW (11.5-15.5) % Plt Count (150-450) k/uL MPV Neutrophils % % Lymphocytes % % Monocytes % % Eosinophils % % Basophils % % Neutrophils # (1.3-7.7) k/uL Lymphocytes # (1.0-4.8) k/uL Monocytes # (0-1.0) k/uL Eosinophils # (0-0.7) k/uL Basophils # (0-0.2) k/uL PT (9.0-12.0) sec INR (<1.2) APTT (22.0-30.0) sec D-Dimer (<0.60) mg/L FEU Sodium (137-145) mmol/L Potassium (3.5-5.1) mmol/L Chloride (98-107) mmol/L Carbon Dioxide (22-30) mmol/L Anion Gap mmol/L BUN (9-20) mg/dL Creatinine (0.66-1.25) mg/dL Est GFR (CKD-EPI)AfAm (>60 ml/min/1.73 sqM) Est GFR (CKD-EPI)NonAf (>60 ml/min/1.73 sqM) Glucose (74-99) mg/dL Calcium (8.4-10.2) mg/dL Magnesium (1.6-2.3) mg/dL Total Bilirubin (0.2-1.3) mg/dL AST (17-59) U/L ALT (4-49) U/L Alkaline Phosphatase (38-126) U/L Troponin I <0.012 (0.000-0.034) ng/mL Total Protein (6.3-8.2) g/dL Albumin (3.5-5.0) g/dL Disposition Clinical Impression: Chest pain Disposition: ADMITTED IP TO THIS HOSP Is patient prescribed a controlled substance at d/c from ED?: No Referrals: Zach Villatoro MD [Primary Care Provider] - 1-2 days Time of Disposition: 15:26
[2023-02-21 13:28] LABS: Basophils % (A) 0 %; Eosinophils # (A) 0.2 k/uL (0-0.7); Eosinophils % (A) 2 %; HCT 43.6 % (39.0-53.0); HGB 14.1 gm/dL (13.0-17.5); Lymphocytes # (A) 2.2 k/uL (1.0-4.8); Lymphocytes % (A) 27 %; MCH 26.8 pg (25.0-35.0); MCHC 32.2 g/dL (31.0-37.0); MCV 83.2 fL (80.0-100.0); Mean Platelet Volume 8.3; Monocytes # (A) 0.5 k/uL (0-1.0); Monocytes % (A) 6 %; Neutrophils # (A) 4.8 k/uL (1.3-7.7); Neutrophils % (A) 61 %; Platelet Count 270 k/uL (150-450); RBC 5.24 m/uL (4.30-5.90); RDW 15.4 % (11.5-15.5); WBC 7.9 k/uL (3.8-10.6)
[2023-02-21 13:40] LABS: Albumin 4.2 g/dL (3.5-5.0); Calcium 8.9 mg/dL (8.4-10.2); Magnesium 2.2 mg/dL (1.6-2.3); Potassium 4.1 mmol/L (3.5-5.1); Total Bilirubin 0.4 mg/dL (0.2-1.3)
[2023-02-21 13:48] LABS: Partial Thromboplastin Time 23.4 sec (22.0-30.0); Prothrombin Time 10.2 sec (9.0-12.0)
--- NOTE | 2023-02-21 13:58 | XR ---
EXAMINATION TYPE: XR chest 2V DATE OF EXAM: 02/21/2023 1:33 PM COMPARISON: Chest radiographs from 02/16/2022 TECHNIQUE: XR chest 2V Frontal and lateral views of the chest. CLINICAL INDICATION:Male, 87 years old with history of Chest Pain; FINDINGS: Lungs/Pleura: There is no evidence of pleural effusion, focal consolidation, or pneumothorax. Pulmonary vascularity: Pulmonary vascular congestion. Heart/mediastinum: Cardiomediastinal silhouette is enlarged and stable. Two lead cardiac conduction d evice overlying the left hemithorax with lead tips projecting over the right ventricle and right atri um. Musculoskeletal: No acute osseous pathology. Left shoulder arthroplasty changes hardware appears inta ct. Other findings: Nerve stimulator device fixing spine. IMPRESSION: Similar cardiomegaly with suggested pulmonary vascular congestion.
[2023-02-21] MEDS ORDERED: NITROGLYCERIN SL TABS 0.4 MG TAB SUBLINGUAL PRN (15:27)
[2023-02-21] MEDS ORDERED: LIDOCAINE 5% PATCH TOPICAL PRN (17:04)
[2023-02-21] MEDS ORDERED: ACETAMINOPHEN TAB 325 MG TAB PO PRN (17:04)
[2023-02-21] MEDS ORDERED: ONDANSETRON 4 MG/2 ML VIAL IVP PRN (17:05)
[2023-02-21] MEDS ORDERED: MELATONIN 3 MG TABLET PO PRN (17:05)
[2023-02-21] MEDS ORDERED: NALOXONE 0.4 MG/ML 1 ML VIAL IV PRN (17:05)
[2023-02-21] MEDS ORDERED: LORazepam 0.5 MG TAB PO PRN (17:05)
[2023-02-21] MEDS ORDERED: LACTULOSE 20 GM/30 ML CUP PO PRN (17:05)
[2023-02-21] MEDS ORDERED: CALCIUM CARBONATE 500 MG CHEWABLE PO PRN (17:05)
[2023-02-21] MEDS: NITROGLYCERIN OINT 1 INCH/GM PACKET TOPICAL SCH (17:53)
[2023-02-21] MEDS: lisinopriL 20 MG TAB PO SCH (20:17)
[2023-02-21] MEDS ORDERED: APIXABAN 5 MG TAB PO SCH (21:00)
[2023-02-22] MEDS: NITROGLYCERIN OINT 1 INCH/GM PACKET TOPICAL SCH ×2 (01:08→05:47)
[2023-02-22] MEDS ORDERED: LEVOTHYROXINE 50 MCG TAB PO SCH (06:30)
--- NOTE | 2023-02-22 07:46 | P.CRDCN ---
History of Present Illness Consult date: 02/22/23 History of present illness: History of Present Illness: The patient is an 87-year-old male with a known history of permanent pacemaker implantation, hypertension who presented with symptoms of chest discomfort. The discomfort started 2 nights ago, sharp and brief and then on Wednesday while at [facility] had further discomfort, same pattern and had further pain at home so he came to the emergency room. He did not feel significantly dyspneic with it. He did not have any dizziness, palpitations or syncope. He has a known history of aortic valve disease. He has been followed by Dr. Alexander. He has underwent cardiac catheterization in 2017 that showed no evidence of obstructive CAD. He has no peripheral edema, PND or orthopnea. In the emergency room his troponin was normal, his EKG showed sinus mechanism with no acute ST segment changes. Medications: Toprol-XL 50 mg daily, lisinopril 20 mg twice a day, Norvasc 5 mg daily, Lasix 20 mg daily,Eliquis 5 mg twice a day Review of Systems: Respiratory: No history of asthma, bronchitis or recent cough. GI: No nausea or vomiting . No history of peptic ulcer disease. No recent GI bleed. : No hematuria or dysuria. Nervous System: No stroke or seizure. Physical Examination: 87-year-old male, alert and oriented no apparent distress,Blood pressure 119/70, Heart rate 60 Head: Normocephalic. Eyes: Sclerae nonicteric. Neck: Good carotid upstroke, no bruit, no jugular venous distention. Lungs: Clear to auscultation. Heart: Regular rate and rhythm, S1-S2, no S3, no rub. Systolic ejection murmur with early diastolic murmur. Abdomen: Soft nontender, positive bowel sounds no organomegaly. Extremities: No edema, intact distal pulses. Labs: Hemoglobin 14.1, BUN 21, creatinine 1.06. Potassium 4.1. Troponin less than 0.012 chest x-ray shows no acute infiltrate EKG: Sinus mechanism with nonspecific ST-T wave changes Impression: 1. Chest discomfort, no evidence of acute coronary syndrome. Patient has no prior CAD by cardiac catheterization in 2017 2. Post pacemaker implantation 3. History of hypertension 4. History of back discomfort 5. Aortic valve disease Plan: 1. Obtain an echo with Doppler 2. Obtain an MPI, if there is evidence of inducible ischemia then coronary angiography would be indicated 3. Continue present therapy 4. Depending on his progress further recommendations will be made 5. 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 Past Anesthesia/Blood Transfusion Reactions: No Reported Reaction Additional Past Anesthesia/Blood Transfusion Reaction / Comment(s): no blood tranfusions Type of Cardiac Device: Permanent Pacemaker Device Placement Date:: 06/08 Past Psychological History: Anxiety Smoking Status: Never smoker Past Alcohol Use History: None Reported Past Drug Use History: None Reported - Past Family History Mother Family Medical History: No Reported History Additional Family Medical History / Comment(s): aneurysm Father Family Medical History: No Reported History Medications and Allergies Home Medications Medication Instructions Recorded Confirmed Type Levothyroxine Sodium [Synthroid] 50 mcg PO DAILY 05/26/15 02/21/23 History amLODIPine [Norvasc] 5 mg PO DAILY 05/26/15 02/21/23 History lisinopriL [Prinivil] 20 mg PO BID 05/26/15 02/21/23 History Furosemide [Lasix] 20 mg PO DAILY 07/20/17 02/21/23 History Apixaban [Eliquis] 5 mg PO BID 02/05/21 02/21/23 History Vit C/E/Cuperic/Zinc/Lutein 1 tab PO DAILY 08/19/22 02/21/23 History [Preservision Lutein Softgel] Acetaminophen [Tylenol] 650 mg PO Q6H PRN 02/21/23 02/21/23 History Glucosamine/Chondr Ferreira A Sod [Osteo 1 tab PO DAILY 02/21/23 02/21/23 History Bi-Flex Caplet] Ibuprofen [Motrin] 800 mg PO TID 02/21/23 02/21/23 History Lidocaine 5% Patch [Lidoderm] 1 patch TOPICAL DAILY PRN 02/21/23 02/21/23 History Metoprolol Succinate (ER) [Toprol 50 mg PO DAILY 02/21/23 02/21/23 History Xl] Multivit-Min/FA/Lycopen/Lutein 1 tab PO DAILY 02/21/23 02/21/23 History [Centrum Silver Men Tablet] Allergies Allergy/AdvReac Type Severity Reaction Status Date / Time No Known Allergies Allergy Verified 02/21/23 15:14 Physical Exam Vitals: Vital Signs Temp Pulse Pulse Pulse Resp BP BP 02/22/23 02:03 97.9 F 54 L 17 119/74 02/22/23 01:59 66 17 02/21/23 20:17 66 17 02/21/23 19:03 97.6 F 66 17 111/69 02/21/23 17:07 97.3 F L 52 L 16 141/89 02/21/23 16:00 52 L 18 134/82 02/21/23 12:55 97.9 F 56 L 22 132/87 Pulse Ox 02/22/23 02:03 94 L 02/22/23 01:59 02/21/23 20:17 02/21/23 19:03 93 L 02/21/23 17:07 97 02/21/23 16:00 95 02/21/23 12:55 95 Intake and Output 02/21/23 02/22/23 02/22/23 22:59 06:59 14:59 Intake Total 118 Balance 118 Intake: Oral 118 Other: Voiding Method Urinal Urinal # Voids 2 1 Weight 87.543 kg Results 02/21/23 13:14 02/21/23 13:14 Cardiac Enzymes 02/21/23 02/21/23 02/21/23 Range/Units 13:14 13:14 15:49 AST 26 (17-59) U/L Troponin I <0.012 <0.012 (0.000-0.034) ng/mL 02/21/23 Range/Units 19:16 AST (17-59) U/L Troponin I <0.012 (0.000-0.034) ng/mL Coagulation 02/21/23 Range/Units 13:14 PT 10.2 (9.0-12.0) sec APTT 23.4 (22.0-30.0) sec CBC 02/21/23 Range/Units 13:14 WBC 7.9 (3.8-10.6) k/uL RBC 5.24 (4.30-5.90) m/uL Hgb 14.1 (13.0-17.5) gm/dL Hct 43.6 (39.0-53.0) % Plt Count 270 (150-450) k/uL Comprehensive Metabolic Panel 02/21/23 Range/Units 13:14 Sodium 143 (137-145) mmol/L Potassium 4.1 (3.5-5.1) mmol/L Chloride 106 (98-107) mmol/L Carbon Dioxide 25 (22-30) mmol/L BUN 21 H (9-20) mg/dL Creatinine 1.06 (0.66-1.25) mg/dL Glucose 98 (74-99) mg/dL Calcium 8.9 (8.4-10.2) mg/dL AST 26 (17-59) U/L ALT 25 (4-49) U/L Alkaline Phosphatase 82 (38-126) U/L Total Protein 7.0 (6.3-8.2) g/dL Albumin 4.2 (3.5-5.0) g/dL Current Medications Generic Name Dose Route Start Last Admin Trade Name Freq PRN Reason Stop Dose Admin Acetaminophen 650 mg 02/21/23 17:04 02/22/23 02:19 Acetaminophen Tab 325 Mg Tab PO 650 mg Q6H PRN Administration Pain or Fever > 100.5 Amlodipine Besylate 5 mg 02/22/23 09:00 Amlodipine 5 Mg Tab PO DAILY [facility] Apixaban 5 mg 02/21/23 21:00 02/21/23 20:17 Apixaban 5 Mg Tab PO 5 mg BID [facility] Administration Protocol Aspirin 325 mg 02/22/23 09:00 Aspirin 325 Mg Tab PO DAILY [facility] Calcium Carbonate/Glycine 1,000 mg 02/21/23 17:05 Calcium Carbonate 500 Mg Chewable PO Q4HR PRN Dyspepsia Lactulose 20 gm 02/21/23 17:05 Lactulose 20 Gm/30 Ml Cup PO DAILY PRN Constipation Levothyroxine Sodium 50 mcg 02/22/23 06:30 02/22/23 05:47 Levothyroxine 50 Mcg Tab PO 50 mcg DAILY@0630 [facility] Administration Lidocaine 1 patch 02/21/23 17:04 Lidocaine 5% Patch TOPICAL DAILY PRN Pain Protocol Lisinopril 20 mg 02/21/23 21:00 02/21/23 20:17 Lisinopril 20 Mg Tab PO 20 mg BID [facility] Administration Lorazepam 0.5 mg 02/21/23 17:05 Lorazepam 0.5 Mg Tab PO Q6HR PRN Anxiety Melatonin 3 mg 02/21/23 17:05 Melatonin 3 Mg Tablet PO HS PRN Insomnia Metoprolol Succinate 50 mg 02/22/23 09:00 Metoprolol Succinate (Er) 50 Mg Tab.Er.24h PO DAILY [facility] Multivitamins 1 each 02/22/23 09:00 Multivitamins, Thera 1 Each Tab PO DAILY [facility] Multivitamins/Minerals 1 each 02/22/23 09:00 Vit A,C & P-Wwwjvh-Jfmjdtis 1 Each Tab PO DAILY [facility] Naloxone HCl 0.2 mg 02/21/23 17:05 Naloxone 0.4 Mg/Ml 1 Ml Vial IV Q2M PRN Opioid Reversal Nitroglycerin 0.4 mg 02/21/23 15:27 Nitroglycerin Sl Tabs 0.4 Mg Tab SUBLINGUAL Q5M PRN Chest Pain Nitroglycerin 1 inch 02/21/23 18:00 02/22/23 05:47 Nitroglycerin Oint 1 Inch/Gm Packet TOPICAL Not Given Q6HR [facility] Ondansetron HCl 4 mg 02/21/23 17:05 Ondansetron 4 Mg/2 Ml Vial IVP Q8HR PRN Nausea And Vomiting Intake and Output 02/21/23 02/22/23 02/22/23 22:59 06:59 14:59 Intake Total 118 Balance 118 Intake: Oral 118 Other: Voiding Method Urinal Urinal # Voids 2 1 Weight 87.543 kg 02/21/23 13:14 02/21/23 13:14
[2023-02-22] MEDS ORDERED: REGADENOSON 0.4 MG/5 ML SYRINGE IV PRN (07:47)
[2023-02-22] MEDS ORDERED: CAFFEINE CITRATE 60 MG/3 ML VIAL IV PRN (07:47)
[2023-02-22] MEDS ORDERED: AMINOPHYLLINE 500 MG/20 ML VIAL IV PRN (07:47)
[2023-02-22] MEDS ORDERED: METOPROLOL SUCCINATE (ER) 50 MG TAB.ER.24H PO SCH (09:00)
[2023-02-22] MEDS ORDERED: MULTIVITAMINS, THERA 1 EACH TAB PO SCH (09:00)
[2023-02-22] MEDS ORDERED: VIT A,C & E-LUTEIN-MINERALS 1 EACH TAB PO SCH (09:00)
[2023-02-22] MEDS ORDERED: amLODIPine 5 MG TAB PO SCH (09:00)
[2023-02-22] MEDS ORDERED: ASPIRIN 81 MG PO SCH (09:00)
[2023-02-22] MEDS ORDERED: ASPIRIN 325 MG TAB PO SCH (09:00)
[2023-02-22 09:18] VITALS: RESP 16
[2023-02-22 09:39] LABS: Chol/HDL Ratio 5.37 Ratio; LDL Cholesterol,Calculated 93.7 mg/dL (0.0-131.0)
--- NOTE | 2023-02-22 11:33 | CA ---
Lexiscan Nuclear Stress Test Report Name: Filemon Dukes Exam Date: 02/22/2023 10:10 Exam Location: [place] Stress Ht (in): 69 Wt (lb): 193 BSA: 2.03 Ordering Phys: Blanco Becker MD Referring Phys: ,, Technologist: Ricardo Mcgill Age: 87 Gender: M : 1935 Procedure CPT: Indications: Reflex order-Stress test ICD-10 Codes: Patient History: Medications: SEE CHART Meds past 24 hrs: Pretest Chest Pain: STRESS TEST Lexiscan Protocol Exercise Duration (min:sec): 01:[address] Depressions (mm): Angina Score: Matthew Score: Resting HR (bpm): 60 Peak HR (bpm): 81 Resting BP (mmHg): 159 / 97 Peak BP (mmHg): 159 / 95 MPHR: 135 Target HR: 115 % MPHR: 60 METS: 1.0 Total Dose: Peak Dose: Atropine: Double Product: 48857 BP Response: Stress Termination: Hypotension Stress Symptoms: HEADACHE Stress Summary: ECG ANALYSIS Resting ECG: Sinus rhythm. Normal conduction. Ventricular premature contraction. Normal repolarization. Stress ECG: No ECG changes from baseline with Lexiscan infusion. CONCLUSIONS No ECG evidence of ischemia with Lexiscan infusion. Nuclear test results to follow. Dr. Blanco Becker MD (Electronically Signed) Final Date: 22 Feb 2023 11:32
[2023-02-22] MEDS: lisinopriL 20 MG TAB PO SCH (11:51)
--- NOTE | 2023-02-22 12:06 | NM ---
EXAMINATION TYPE: NM stress lexiscan cardiolite DATE OF EXAM: 02/22/2023 COMPARISON: NONE CLINICAL INDICATION: Male, 87 years old with history of chest pain; TECHNIQUE: After the intravenous administration of 9.7 mCi Tc 99m Sestamibi - Cardiolite resting SPE CT images acquired 45 minutes post injection. The patient received 0.4mg Lexiscan, 24.5 mCi Tc 99m Sestamibi - Stress images obtained [address] injection FINDINGS: Review of stress and rest SPECT images demonstrates no distinct perfusion abnormality. Gated analysi s shows normal wall motion with an estimated left ventricular ejection fraction of 59 %. IMPRESSION: No scintigraphic evidence for reversible ischemia.
[2023-02-22 15:32] VITALS: BP 137/73; PULSE 63; TEMP 97.5
--- NOTE | 2023-02-22 15:39 | P.HPIM ---
History of Present Illness H&P Date: 02/22/23 Chief Complaint: Chest pain This is a pleasant 87-year-old patient who follows with Dr. Zach Villatoro. 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 Patient denies any prior CAD. Yesterday and early hours of the morning felt a very sharp pain below the left clavicle and then it went away. Patient been back to his bed. After autograft taken at this very severe sharp pain that again quickly went away. Patient is subsequently [facility] and the pain was present on and off. No short of breath no dizziness no palpitations no fever no chills. Decided to come into the hospital. It was localized to the left infraclavicular area. Denied any excessive physical activity his arm. Patient normally uses a walker to get from the house because of lower back pain. Review of systems: GEN.: None EYES: None HEENT: None NECK: None RESPIRATORY: None CARDIOVASCULAR: As above GASTROINTESTINAL: None GENITOURINARY: None MUSCULOSKELETAL: Joint pains, including back LYMPHATICS: None HEMATOLOGICAL: None PSYCHIATRY: None NEUROLOGICAL: Uses a cane, walker Past medical history to include: CHF, hyperlipidemia, hypertension, hypothyroid, permanent pacemaker, anxiety Social history: . Retired from several jobs. No smoking or alcohol. Physical examination: VITAL SIGNS: 97.9, 56, 22, 132/87, 95% room air GENERAL: BMI 28.5, declining but awake comfortable. EYES: Pupils equal. Conjunctiva normal. HEENT: External appearance of nose and ears normal, oral cavity grossly normal. NECK: JVD not raised; masses not palpable. HEART: First and second heart sounds are normal; no edema. LUNGS: Respiratory rate normal; clear to auscultation. ABDOMEN: Soft, nontender, liver spleen not palpable, no masses palpable. PSYCH: Alert and oriented x3; mood and affect normal. MUSCULOSKELETAL:No Clubbing/cyanosis;muscles-grossly intact. Patient has localized tenderness below the left clavicle possibly underlying pacemaker wire can be felt NEUROLOGICAL: Cranial nerves grossly intact; no facial asymmetry, power and sensation grossly intact. LYMPHATICS: No lymph nodes palpable in the axilla and neck INVESTIGATIONS, reviewed in the clinical context: White count 7.9 hemoglobin 14.1 platelets 270 sodium 143 potassium 4.1 creatinine 1.06 Troponin I 3 negative Triglycerides 321 LDL 93 EKG tracing personally reviewed by me-normal sinus rhythm. Nonspecific T-wave changes. Rate 54. Chest x-ray film personally reviewed by me-pacemaker Assessment and plan: -Acute sharp intermittent left infraclavicular localized pain. Some reproducible tenderness over the pacemaker wire. Underlying cardiac cause to be ruled out. 2-D echocardiogram, nuclear stress test ordered by cardiology. Telemetry. Troponins are negative. -Permanent pacemaker -Essential hypertension Amlodipine 5 mg a day. 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 Stress test. Cardiology consulted. 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 Past Anesthesia/Blood Transfusion Reactions: No Reported Reaction Additional Past Anesthesia/Blood Transfusion Reaction / Comment(s): no blood tranfusions Type of Cardiac Device: Permanent Pacemaker Device Placement Date:: 06/08 Past Psychological History: Anxiety Smoking Status: Never smoker Past Alcohol Use History: None Reported Past Drug Use History: None Reported - Past Family History Mother Family Medical History: No Reported History Additional Family Medical History / Comment(s): aneurysm Father Family Medical History: No Reported History Medications and Allergies Home Medications Medication Instructions Recorded Confirmed Type Levothyroxine Sodium [Synthroid] 50 mcg PO DAILY 05/26/15 02/21/23 History amLODIPine [Norvasc] 5 mg PO DAILY 05/26/15 02/21/23 History lisinopriL [Prinivil] 20 mg PO BID 05/26/15 02/21/23 History Furosemide [Lasix] 20 mg PO DAILY 07/20/17 02/21/23 History Apixaban [Eliquis] 5 mg PO BID 02/05/21 02/21/23 History Vit C/E/Cuperic/Zinc/Lutein 1 tab PO DAILY 08/19/22 02/21/23 History [Preservision Lutein Softgel] Acetaminophen [Tylenol] 650 mg PO Q6H PRN 02/21/23 02/21/23 History Glucosamine/Chondr Ferreira A Sod [Osteo 1 tab PO DAILY 02/21/23 02/21/23 History Bi-Flex Caplet] Ibuprofen [Motrin] 800 mg PO TID 02/21/23 02/21/23 History Lidocaine 5% Patch [Lidoderm] 1 patch TOPICAL DAILY PRN 02/21/23 02/21/23 History Metoprolol Succinate (ER) [Toprol 50 mg PO DAILY 02/21/23 02/21/23 History Xl] Multivit-Min/FA/Lycopen/Lutein 1 tab PO DAILY 02/21/23 02/21/23 History [Centrum Silver Men Tablet] Allergies Allergy/AdvReac Type Severity Reaction Status Date / Time No Known Allergies Allergy Verified 02/21/23 15:14 Physical Exam Vitals: Vital Signs Temp Pulse Pulse Pulse Resp BP BP 02/22/23 08:37 02/22/23 08:00 66 55 L 16 02/22/23 07:00 98.1 F 55 L 16 119/76 02/22/23 02:03 97.9 F 54 L 17 119/74 02/22/23 01:59 66 17 02/21/23 20:17 66 17 02/21/23 19:03 97.6 F 66 17 111/69 02/21/23 17:07 97.3 F L 52 L 16 141/89 02/21/23 16:00 52 L 18 134/82 02/21/23 12:55 97.9 F 56 L 22 132/87 Pulse Ox 02/22/23 08:37 99 02/22/23 08:00 02/22/23 07:00 95 02/22/23 02:03 94 L 02/22/23 01:59 02/21/23 20:17 02/21/23 19:03 93 L 02/21/23 17:07 97 02/21/23 16:00 95 02/21/23 12:55 95 Intake and Output 02/21/23 02/22/23 02/22/23 22:59 06:59 14:59 Intake Total 118 Balance 118 Intake: Oral 118 Other: Voiding Method Urinal Urinal Urinal # Voids 2 1 1 Weight 87.543 kg Results CBC & Chem 7: 02/21/23 13:14 02/21/23 13:14 Labs: Abnormal Lab Results - Last 24 Hours (Table) 02/21/23 02/21/23 Range/Units 05:43 13:14 BUN 21 H (9-20) mg/dL Triglycerides 321.00 H (0.00-149.00) mg/dL VLDL Cholesterol, Calc 64.20 H (5.00-40.00) mg/dL HDL Cholesterol 36.10 L (40.00-60.00) mg/dL Thrombosis Risk Factor Assmnt - Choose All That Apply Any of the Below Risk Factors Present?: No
--- NOTE | 2023-02-22 15:45 | P.DS ---
Providers Date of admission: 02/21/23 15:28 Expected date of discharge: 02/22/23 Attending physician: Jesus Borges Consults: 02/21/23 15:27 Consult Physician Urgent Consulting Provider: Ld Villagran Consult Reason/Comments: cp Do you want consulting provider notified?: Yes Primary care physician: Zach Wilson [facility] Course: Chief Complaint: Chest pain This is a pleasant 87-year-old patient who follows with Dr. Zach Villatoro. 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 Patient denies any prior CAD. Yesterday and early hours of the morning felt a very sharp pain below the left clavicle and then it went away. Patient been back to his bed. After autograft taken at this very severe sharp pain that again quickly went away. [facility] is [facility] and the pain was present on and off. No short of breath no dizziness no palpitations no fever no chills. Decided to come into the hospital. It was localized to the left infraclavicular area. Denied any excessive physical activity his arm. Patient normally uses a walker to get from the house because of lower back pain. Patient was seen by Dr. Becker from cardiology. Nuclear stress test was negative. I did discuss with the patient some localized tenderness of the p acemaker wire below the clavicle. Does not white count no fever. 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 Alexander. I did convey this to Dr. Becker Past medical history to include: CHF, hyperlipidemia, hypertension, hypothyroid, permanent pacemaker, anxiety Social history: . Retired from several jobs. No smoking or alcohol. Physical examination: VITAL SIGNS: 97.9, 56, 22, 132/87, 95% room air GENERAL: BMI 28.5, declining but awake comfortable. EYES: Pupils equal. Conjunctiva normal. HEENT: External appearance of nose and ears normal, oral cavity grossly normal. NECK: JVD not raised; masses not palpable. HEART: First and second heart sounds are normal; no edema. LUNGS: Respiratory rate normal; clear to auscultation. ABDOMEN: Soft, nontender, liver spleen not palpable, no masses palpable. PSYCH: Alert and oriented x3; mood and affect normal. MUSCULOSKELETAL:No Clubbing/cyanosis;muscles-grossly intact. Patient has localized tenderness below the left clavicle possibly underlying pacemaker wire can be felt NEUROLOGICAL: Cranial nerves grossly intact; no facial asymmetry, power and sensation grossly intact. LYMPHATICS: No lymph nodes palpable in the axilla and neck INVESTIGATIONS, reviewed in the clinical context: Nuclear stress test: Negative for ischemia White count 7.9 hemoglobin 14.1 platelets 270 sodium 143 potassium 4.1 creatinine 1.06 Troponin I 3 negative Triglycerides 321 LDL 93 EKG tracing personally reviewed by me-normal sinus rhythm. Nonspecific T-wave changes. Rate 54. Chest x-ray film personally reviewed by me-pacemaker Assessment and plan: -Acute sharp intermittent left infraclavicular localized pain. Some reproducible tenderness over the pacemaker wire.: Probably musculoskeletal 2-D echocardiogram, pending, nuclear stress test: Negative. Troponins are negative. Patient to follow-up with Dr. HARVINDER Alexander -Permanent pacemaker -Essential hypertension Amlodipine 5 mg a day. 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, patient uses a cane/walker at her baseline -Full code Disposition: Home Plan - Discharge Summary Discharge Rx Participant: Yes New Discharge Prescriptions: No Action amLODIPine [Norvasc] 5 mg PO DAILY Levothyroxine Sodium [Synthroid] 50 mcg PO DAILY lisinopriL [Prinivil] 20 mg PO BID Furosemide [Lasix] 20 mg PO DAILY Apixaban [Eliquis] 5 mg PO BID Metoprolol Succinate (ER) [Toprol Xl] 50 mg PO DAILY Acetaminophen [Tylenol] 650 mg PO Q6H PRN PRN Reason: Pain Or Fever > 100.5 Ibuprofen [Motrin] 800 mg PO TID Vit C/E/Cuperic/Zinc/Lutein [Preservision Lutein Softgel] 1 tab PO DAILY Multivit-Min/FA/Lycopen/Lutein [Centrum Silver Men Tablet] 1 tab PO DAILY Lidocaine 5% Patch [Lidoderm] 1 patch TOPICAL DAILY PRN PRN Reason: Pain Glucosamine/Chondr Ferreira A Sod [Osteo Bi-Flex Caplet] 1 tab PO DAILY Discharge Medication List Levothyroxine Sodium [Synthroid] 50 mcg PO DAILY 05/26/15 [History] amLODIPine [Norvasc] 5 mg PO DAILY 05/26/15 [History] lisinopriL [Prinivil] 20 mg PO BID 05/26/15 [History] Furosemide [Lasix] 20 mg PO DAILY 07/20/17 [History] Apixaban [Eliquis] 5 mg PO BID 02/05/21 [History] Vit C/E/Cuperic/Zinc/Lutein [Preservision Lutein Softgel] 1 tab PO DAILY 08/19/22 [History] Acetaminophen [Tylenol] 650 mg PO Q6H PRN 02/21/23 [History] Glucosamine/Chondr Ferreira A Sod [Osteo Bi-Flex Caplet] 1 tab PO DAILY 02/21/23 [History] Ibuprofen [Motrin] 800 mg PO TID 02/21/23 [History] Lidocaine 5% Patch [Lidoderm] 1 patch TOPICAL DAILY PRN 02/21/23 [History] Metoprolol Succinate (ER) [Toprol Xl] 50 mg PO DAILY 02/21/23 [History] Multivit-Min/FA/Lycopen/Lutein [Centrum Silver Men Tablet] 1 tab PO DAILY 02/21/23 [History] Follow up Appointment(s)/Referral(s): Na Alexander MD [STAFF PHYSICIAN] - 1 Week Zach Villatoro MD [Primary Care Provider] - 1-2 days
--- NOTE | 2023-02-22 18:08 | CA ---
Transthoracic Echo Report Name: Filemon Dukes Age: 87 Gender: M : 1935 Exam Date: 02/22/2023 08:13 Exam Location: [facility] Ht (in): 69 Wt (lb): 193 Ordering Physician: Blanco Becker MD ([id number]) Attending/Referring Phys: Performance Improvement Specialist Jackelyn Neal RDCS Procedure CPT: Indications: CP Cardiac Hx: Technical Quality: Fair Contrast 1: Total Dose (mL): Contrast 2: Total Dose (mL): MEASUREMENTS (Male / Female) Normal Values 2D ECHO LV Diastolic Diameter PLAX 4.3 cm 4.2 - 5.9 / 3.9 - 5.3 cm LV Systolic Diameter PLAX 1.9 cm IVS Diastolic Thickness 1.3 cm 0.6 - 1.0 / 0.6 - 0.9 cm LVPW Diastolic Thickness 1.3 cm 0.6 - 1.0 / 0.6 - 0.9 cm LV Relative Wall Thickness 0.6 RV Internal Dim ED PLAX 3.9 cm LA Volume 87.3 cm??? 18 - 58 / 22 - 52 cm??? M-MODE Aortic Root Diameter MM 3.9 cm LA Systolic Diameter MM 3.9 cm LA Ao Ratio MM 1.0 AV Cusp Separation MM 2.3 cm DOPPLER AV Peak Velocity 143.6 cm/s AV Peak Gradient 8.2 mmHg AV Mean Velocity 92.7 cm/s AV Mean Gradient 3.9 mmHg AV Velocity Time Integral 28.9 cm AI Peak Velocity 404.6 cm/s AI Peak Gradient 65.5 mmHg AI Pressure Half Time 545.3 ms LVOT Peak Velocity 93.0 cm/s LVOT Peak Gradient 3.5 mmHg MV Area PHT 3.5 cm??? Mitral E Point Velocity 61.5 cm/s Mitral A Point Velocity 75.8 cm/s Mitral E to A Ratio 0.8 MV Deceleration Time 219.9 ms MV E' Velocity 5.7 cm/s Mitral E to MV E' Ratio 10.7 TR Peak Velocity 265.1 cm/s TR Peak Gradient 28.1 mmHg Right Ventricular Systolic Press 32.7 mmHg FINDINGS Left Ventricle Mildly increased left ventricular wall thickness. Left ventricular cavity size normal. Normal left ventricular systolic function with no obvious regional wall motion abnormalities. Left ventricular ejection fraction is estimated at 55-60 %. Right Ventricle Moderate right ventricular dilatation. Right ventricular systolic pressure within normal limits. A wire is noted in the right ventricle Right Atrium Normal right atrial size. Left Atrium Severely increased left atrial volume. Mildly increased left atrial area. Mitral Valve Structurally normal mitral valve. Mild mitral annular calcification. Mild mitral regurgitation. Aortic Valve Trileaflet aortic valve. Thickened aortic valve without stenosis. Mild to moderate aortic regurgitation. Tricuspid Valve Structurally normal tricuspid valve. Mild tricuspid regurgitation. Pulmonic Valve Trace pulmonic regurgitation. Pericardium No pericardial effusion. Aorta Normal size aortic root and proximal ascending aorta. CONCLUSIONS 1. Normal left ventricle size and systolic function 2. Axzv-yr-vkekdtto aortic regurgitation 3. Mild mitral and tricuspid regurgitation with no evidence of pulmonary hypertension 4. A wire is noted in the right ventricle Previewed by: Dr. Blanco Becker MD (Electronically Signed) Final Date: 22 Feb 2023 18:07
== END 2023-02-22 16:53 | disposition home or self-care (01) ==
LOC: EC 12:46 → 6NMEDSUR 15:28
PROVIDERS: ADMIT Hospitalist; ATTEND Hospitalist
DX: R07.89 Other chest pain (principal); E78.5 Hyperlipidemia, unspecified; F41.9 Anxiety disorder, unspecified; I35.9 Nonrheumatic aortic valve disorder, unspecified; I25.10 Atherosclerotic heart disease of native coronary artery without angina pectoris; I11.0 Hypertensive heart disease with heart failure; I50.9 Heart failure, unspecified; G89.29 Other chronic pain; M54.9 Dorsalgia, unspecified; E03.9 Hypothyroidism, unspecified; R26.9 Unspecified abnormalities of gait and mobility; Z95.810 Presence of automatic (implantable) cardiac defibrillator; Z79.899 Other long term (current) drug therapy; Z79.890 Hormone replacement therapy; Z79.01 Long term (current) use of anticoagulants
CPT/HCPCS: 99285; 36415; 94760; 93005; 93017; 93306; 85379; 80061; 80053; 83735; 84484; 85025; 85610; 85730; 71046; 78452; G0378 ×2; A9500; J2785

== ENCOUNTER → 2023-08-30 | Outpatient (CLI) | payer MEDICARE ==
[2023-08-30 12:30] VITALS: BP 166/88; PULSE 119; RESP 15; TEMP 98.7
--- NOTE | 2023-08-30 13:49 | P.PAINPG ---
PQRS Measure Charge Sheet Comment: A 88 yr old male with a history of severe and chronic LBP secondary to DDD, spondylosis and facet arthropathy without myelopathy presents today for evaluation. Pain level is currently at 8/10 in intensity, sharp in character, predominantly axial, localized in the lumbar spine without radiation of pain. Pain is provoked w being upright for periods of 15 min or more. Pain is alleviated with injections, heat, ice, medications, topical, reclining and rest. Oswestry axial pain score of 26. Interventional pain procedures completed include L MILDRED x1 Patient is currently on [place] 5/325mg, Lidoderm Patient denies any side effects of the medication(s), denies excessive drowsiness or sleepiness, denies suicidal ideation and reports that the current pain medication is helping to control the pain and improve activities of daily living. Patient denies any motor or sensory deficits. Patient denies any fever or night sweats, denies any change in the bowel movements or urination. Physical Examination: -Constitutional: Cooperative. Not in acute distress . - Neurologic: Cranial nerve II to XII intact. No focal neurological deficits. - Psychatric: Alert & oriented x 3. Matching mood & appropriate affect. Judgment and insight intact. - Musculoskeletal: Cervical spine: Muscle bulk/ tone/ strength in the bilateral upper extremities normal Vertebral body tenderness to palpation Spurling test positive Distraction test positive Facet loading test positive Thoracic spine Muscle bulk / tone/ strength in the bilateral paraspinal muscles normal Vertebral body tender to palpation over Facet loading test positive Lumbar spine: Motor bulk/ tone/ strength lower extremities , thigh and legs : 5/5 Deep tendon reflexes : Normal Knee Jerk. Normal Ankle Jerk . 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 May need additional testing if indicated. RTC in 6 wks for a re evaluation. All patient questions answered I have spent less than 30 minutes on patient care today. Dr Long was available by phone for the evaluation of this patient. The time was used to review the medical records including relevant urine studies and Prescription history (MAPs), review of the available imaging, evaluation and examination of the patient, coordination of care with the medical staff and if applicable referring physicians, as well as creation of the medical record PQRS Narrative: Smoking Status Never smoker Hx Alcohol Use (MH) No Home Medications: Ambulatory Orders Levothyroxine Sodium [Synthroid] 50 mcg PO DAILY 05/26/15 amLODIPine [Norvasc] 5 mg PO DAILY 05/26/15 lisinopriL [Prinivil] 20 mg PO BID 05/26/15 Furosemide [Lasix] 20 mg PO DAILY 07/20/17 Apixaban [Eliquis] 5 mg PO BID 02/05/21 Vit C/E/Cuperic/Zinc/Lutein [Preservision Lutein Softgel] 1 tab PO DAILY 2 Acetaminophen [Tylenol] 650 mg PO Q6H PRN 02/21/23 Glucosamine/Chondr Ferreira A Sod [Osteo Bi-Flex Caplet] 1 tab PO DAILY 02/21/23 Ibuprofen [Motrin] 800 mg PO TID 02/21/23 Lidocaine 5% Patch [Lidoderm] 1 patch TOPICAL DAILY PRN 02/21/23 Metoprolol Succinate (ER) [Toprol Xl] 50 mg PO DAILY 02/21/23 Mv-Min/Folic/K1/Lycopen/Lutein [Centrum Silver Men Tablet] 1 tab PO DAILY 02/21/23 Controlled Substance Measures - Controlled Substance Measures Is patient prescribed a controlled substance at discharge?: No
== END ==
LOC: PNWHC3 11:02
PROVIDERS: ATTEND Specialist
DX: M47.816 Spondylosis without myelopathy or radiculopathy, lumbar region (principal); G44.86 Cervicogenic headache; M54.81 Occipital neuralgia; G89.29 Other chronic pain
CPT/HCPCS: 99211

== ENCOUNTER → 2023-08-30 | Outpatient (CLI) | payer MEDICARE ==
--- NOTE | 2023-08-30 12:26 | XR ---
EXAM TYPE: LUMBAR SPINE X RAY SERIES COMPARISON: 02/20/2021, 12/13/2010 HISTORY: Pain TECHNIQUE: 4 views are submitted. FINDINGS: Diffuse osteopenia with scoliotic curvature of the spine. Stimulator device with lead noted. Pedicles intact. There is severe multilevel degenerative disc disease and facet arthropathy. Scoliotic curvat ure. IMPRESSION: Scoliosis with severe multilevel degenerative disc disease, facet arthropathy and multilevel foramina l encroachment.
== END | disposition home or self-care (01) ==
LOC: RADXRMAIN 11:41
PROVIDERS: ATTEND Physician Assistant Medical
DX: M51.36 Other intervertebral disc degeneration, lumbar region (principal); M47.816 Spondylosis without myelopathy or radiculopathy, lumbar region; M41.86 Other forms of scoliosis, lumbar region
CPT/HCPCS: 72100

== ENCOUNTER → 2023-10-06 | Outpatient (CLI) | payer MEDICARE ==
--- NOTE | 2023-10-06 12:17 | CT ---
EXAMINATION TYPE: CT lumbar spine wo con DATE OF EXAM: 10/06/2023 COMPARISON: 02/20/2021 HISTORY: low back pain, no injury CT DLP: 1114.[address] of the lumbar spine was performed. Bone and soft tissue window settings are submitted as well as coronal and sagittal reconstructions. Curvature convex to the left. L1-L2: Mild degenerative narrowing. Left paracentral disc bulge. No definite evidence for central her niation or lateral recess stenosis. Mild foraminal encroachment. L2-L3: Severe degenerative narrowing. Decompressive laminectomy. Mild posterior disc bulge. No centra l stenosis. Mild left foraminal encroachment. L3-L4: Severe degenerative disc space narrowing circumferential disc bulge greatest posteriorly. Effa cement ventral thecal sac. Decompressive laminectomy change. Bilateral foraminal encroachment. L4-L5: Severe degenerative narrowing with vacuum disc. Posterior disc bulge with hypertrophy of the l igamentum flavum. Bztw-sy-danuzkat central stenosis. Facet joint arthropathy and bilateral foraminal management. L5-S1: Normal disc space height. No disc herniation protrusion or central stenosis. No facet joint arthropathy. No evidence for foraminal encroachment. No paraspinal masses are identified. Lumbar segments are free if fracture. IMPRESSION: 1. Multilevel degenerative disc disease
== END | disposition home or self-care (01) ==
LOC: RADCTMAIN 11:13
PROVIDERS: ATTEND Specialist
DX: M51.36 Other intervertebral disc degeneration, lumbar region (principal)
CPT/HCPCS: 72131

== ENCOUNTER → 2023-10-11 | Outpatient (CLI) | payer MEDICARE ==
[2023-10-11 11:28] VITALS: BP 138/88; PULSE 64; RESP 16; TEMP 98.6
--- NOTE | 2023-10-11 13:26 | P.PAINPG ---
PQRS Measure Charge Sheet Comment: A 88 yr old male with a history of severe and chronic LBP x 7 mo secondary to DDD, spondylosis and facet arthropathy without myelopathy presents today for evaluation. Pain level is currently at 10/10 in intensity, sharp in character, predominantly axial, localized in the lumbar spine without radiation of pain. Pain is provoked w being upright for periods of 15 min or more. Pain is alleviated with PT x 3 wks in Aug- Sep 2023 which he is currently in, injections, heat, ice, medications, topical, use of a walker for ambulatory assistance, reclining and rest. Oswestry axial pain score of 26. Interventional pain procedures completed include L MILDRED x1 Patient is currently on [place] 5/325mg, Ibu, Tyl, Lidoderm Patient denies any side effects of the medication(s), denies excessive drowsiness or sleepiness, denies suicidal ideation and reports that the current pain medication is helping to control the pain and improve activities of daily living. Patient denies any motor or sensory deficits. Patient denies any fever or night sweats, denies any change in the bowel movements or urination. Physical Examination: -Constitutional: Cooperative. Not in acute distress . - Neurologic: Cranial nerve II to XII intact. No focal neurological deficits. - Psychatric: Alert & oriented x 3. Matching mood & appropriate affect. Judgment and insight intact. - Musculoskeletal: Cervical spine: Muscle bulk/ tone/ strength in the bilateral upper extremities normal Vertebral body tenderness to palpation Spurling test positive Distraction test positive Facet loading test positive Thoracic spine Muscle bulk / tone/ strength in the bilateral paraspinal muscles normal Vertebral body tender to palpation over Facet loading test positive Lumbar spine: Motor bulk/ tone/ strength lower extremities , thigh and legs : 5/5 Deep tendon reflexes : Normal Knee Jerk. Normal Ankle Jerk . 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 May need a series of injections for optimal pain relief. Risks, benefits of procedure discussed and pt verbalized understanding. Protocol for discontinuation/ continuation of medications surrounding procedure discussed. All patient questions answered I have spent less than 30 minutes on patient care today. Dr Long was available by phone for the evaluation of this patient. The time was used to review the medical records including relevant urine studies and Prescription history (MAPs), review of the available imaging, evaluation and examination of the patient, coordination of care with the medical staff and if applicable referring physicians, as well as creation of the medical record PQRS Narrative: Smoking Status Never smoker Hx Alcohol Use (MH) No Home Medications: Ambulatory Orders Levothyroxine Sodium [Synthroid] 50 mcg PO DAILY 05/26/15 amLODIPine [Norvasc] 5 mg PO DAILY 05/26/15 lisinopriL [Prinivil] 20 mg PO BID 05/26/15 Furosemide [Lasix] 20 mg PO DAILY 07/20/17 Apixaban [Eliquis] 5 mg PO BID 02/05/21 Vit C/E/Cuperic/Zinc/Lutein [Preservision Lutein Softgel] 1 tab PO DAILY 08/19/22 Acetaminophen [Tylenol] 650 mg PO Q6H PRN 02/21/23 Glucosamine/Chondr Ferreira A Sod [Osteo Bi-Flex Caplet] 1 tab PO DAILY 02/21/23 Ibuprofen [Motrin] 800 mg PO TID 02/21/23 Lidocaine 5% Patch [Lidoderm] 1 patch TOPICAL DAILY PRN 02/21/23 Metoprolol Succinate (ER) [Toprol Xl] 50 mg PO DAILY 02/21/23 Mv-Min/Folic/K1/Lycopen/Lutein [Centrum Silver Men Tablet] 1 tab PO DAILY 02/21/23 Controlled Substance Measures - Controlled Substance Measures Is patient prescribed a controlled substance at discharge?: No
== END ==
LOC: PNWHC3 10:45
PROVIDERS: ATTEND Specialist
DX: M54.81 Occipital neuralgia (principal); G44.86 Cervicogenic headache
CPT/HCPCS: 99211

== ENCOUNTER 2023-11-04 07:31 | Day surgery (SDC) | payer MEDICARE ==
[~2023-11-04 07:31] MED LIST changes: -LIDOCAINE 1% (10MG/ML) FOR IV START INTRADERMA PRN
[2023-11-04 08:03] VITALS: TEMP 97.5
[2023-11-04] MEDS ORDERED: ROPIVACAINE 5MG/ML 20ML VIAL ONE (08:28)
[2023-11-04] MEDS ORDERED: methylPREDNISolone ACETATE 80 MG/ML 1 ML VIAL ONE (08:28)
[2023-11-04] MEDS ORDERED: IOPAMIDOL M300 15ML VIAL ONE (08:28)
[2023-11-04] MEDS ORDERED: IV FLUID CONTINUATION 1,000 ML IV ONE (08:47)
--- NOTE | 2023-11-04 08:47 | P.PCN ---
Description of Procedure: PREOPERATIVE DIAGNOSIS: 1- Lumbar Degenerative Disc Diseases 2-Lumbar spondylosis with Facet arthropathy without myelopathy. 3-lumbar spinal stenosis POSTOPERATIVE DIAGNOSIS: 1-lumbar degenerative disc disease. 2-lumbar spondylosis with facet arthropathy without myelopathy. 3-lumbar spinal stenosis. PROCEDURE Injection of radio contrast material into L5-S1 interspace, interpretation of epidurogram, injection of steroid at L5-S1 epidural space under fluoroscopic guidance. ANESTHESIA: Lidocaine 1% subcutaneously. In OR continuous pulse ox, EKG, blood pressure and verbal communication was maintained with the patient. EBL: Minimal PROCEDURE INDICATION: Before the procedure were discussed with the patient detai led procedure, alternatives, complications including infection, bleeding, nerve damage, paralysis all of which could be permanent. Patient understands and all questions were answered. PROCEDURE DESCRIPTION : After getting consent, patient in OR in prone position. Back was prepped with chlorhexidine and draped in sterile fashion. After injecting 10 mL of 1% lidocaine subcutaneously, a 20-gauge Tuohy needle was introduced at L4 5 interspace but unable to get into the epidural space because of post surgical changes. So decided to go at L5-S1 level right paramedial with loss of resistance technique using a syringe filled with air. Negative CSF, negative blood, negative paresthesia. Needle position was confirmed with AP and lateral view of the fluoroscope. After repeat negative aspiration 2 mL of Omnipaque 300 water soluble contrast was injected. Contrast was noted in the epidural space. No contrast was noted into intrathecal or intravascular space. After repeat negative aspiration 6 mL solution was injected intermittently which consists of 5 mL of preservative-free normal saline mixed with 1 mL of 80 mg Depo-Medrol. Needle was withdrawn intact. Skin was cleansed and Band-Aids was applied. DISPOSITION / PLANS: The patient tolerated the procedure well. No complication. The patient was placed in a supine position and transferred to the recovery area in a stable condition for observation. There was no evidence of lower extremity motor or sensory deficit after the procedure. Patient was discharged from the recovery room after meeting discharge criteria. Home discharge instructions were given to the patient by the staff. The patient was reexamined prior to discharge. The patient will schedule a follow up in the clinic in 2-4 weeks. His next epidural injection should be scheduled as CAUDAL LEXY because of significant postsurgical changes in the lumbar spine.
[2023-11-04 09:18] VITALS: BP 164/73; PULSE 58; RESP 20
--- NOTE | 2023-11-04 12:44 | FL ---
EXAMINATION TYPE: FL guided pain mgmt statistic DATE OF EXAM: 11/04/2023 FLUOROSCOPY Fluoroscopy time of 13 seconds was used during lumbar epidural steroid injection. 2 image/s document /s the procedure. 0.93007 Gycm2.
== END 2023-11-04 09:20 ==
LOC: ORPAIN 07:31
PROVIDERS: ATTEND Pain Medicine Interventional Pain Medicine
DX: M51.36 Other intervertebral disc degeneration, lumbar region (principal); M47.816 Spondylosis without myelopathy or radiculopathy, lumbar region; M48.061 Spinal stenosis, lumbar region without neurogenic claudication; Z79.01 Long term (current) use of anticoagulants
CPT/HCPCS: 62323; J1040; Q9967; J2795

== ENCOUNTER → 2023-11-22 | Outpatient (CLI) | payer MEDICARE ==
[2023-11-22 11:04] VITALS: BP 135/91; PULSE 86; RESP 14
--- NOTE | 2023-11-25 07:53 | P.PAINPG ---
PQRS Measure Charge Sheet Comment: A 88 yr old male with a history of severe and chronic LBP x 7 mo secondary to DDD, spondylosis and facet arthropathy without myelopathy presents today for evaluation s/p LEXY L5-S1. Pt states he experienced 0 % pain relief x 2-3 wks s/p procedure. Pain level is currently at 10/10 in intensity, sharp in character, predominantly axial, localized in the lumbar spine without radiation of pain. Pain is provoked w being upright for periods of 15 min or more. Pain is alleviated with PT x 5 wks in Aug- Sep 2023, injections, heat, ice, medications, topical, use of a walker for ambulatory assistance, reclining and rest. Oswestry axial pain score of 26. Interventional pain procedures completed include L MILDRED x1, LEXY L5-S1 x1 Patient is currently on [place] 5/325mg, Baclofen, Ibu, Tyl, Lidoderm Patient denies any side effects of the medication(s), denies excessive drowsiness or sleepiness, denies suicidal ideation and reports that the current pain medication is helping to control the pain and improve activities of daily living. Patient denies any motor or sensory deficits. Patient denies any fever or night sweats, denies any change in the bowel movements or urination. Physical Examination: -Constitutional: Cooperative. Not in acute distress . - Neurologic: Cranial nerve II to XII intact. No focal neurological deficits. - Psychatric: Alert & oriented x 3. Matching mood & appropriate affect. Judgment and insight intact. - Musculoskeletal: Cervical spine: Muscle bulk/ tone/ strength in the bilateral upper extremities normal Vertebral body tenderness to palpation Spurling test positive Distraction test positive Facet loading test positive Thoracic spine Muscle bulk / tone/ strength in the bilateral paraspinal muscles normal Vertebral body tender to palpation over Facet loading test positive Lumbar spine: Motor bulk/ tone/ strength lower extremities , thigh and legs : 5/5 Deep tendon reflexes : Normal Knee Jerk. Normal Ankle Jerk . 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 [place] 5/325gm #60 1 RF. Use, side effects, adverse reactions and safe storage discussed. Opiate/ narcotic agreement signed 11/22/23. All patient questions answered I have spent less than 30 minutes on patient care today. Dr Long was available by phone for the evaluation of this patient. The time was used to review the medical records including relevant urine studies and Prescription history (MAPs), review of the available imaging, evaluation and examination of the patient, coordination of care with the medical staff and if applicable referring physicians, as well as creation of the medical record PQRS Narrative: Smoking Status Never smoker Hx Alcohol Use (MH) No Home Medications: Ambulatory Orders Levothyroxine Sodium [Synthroid] 50 mcg PO QAM 05/26/15 amLODIPine [Norvasc] 5 mg PO QAM 05/26/15 lisinopriL [Prinivil] 20 mg PO BID 05/26/15 Furosemide [Lasix] 20 mg PO QAM 07/20/17 Apixaban [Eliquis] 5 mg PO BID 02/05/21 Vit C/E/Cuperic/Zinc/Lutein [Preservision Lutein Softgel] 1 tab PO DAILY 08/19/22 Acetaminophen [Tylenol] 650 mg PO Q6H PRN 02/21/23 Glucosamine/Chondr Ferreira A Sod [Osteo Bi-Flex Caplet] 1 tab PO DAILY 02/21/23 Ibuprofen [Motrin] 800 mg PO TID 02/21/23 Mv-Min/Folic/K1/Lycopen/Lutein [Centrum Silver Men Tablet] 1 tab PO DAILY 02/21/23 Cephalexin [Keflex] 500 mg PO Q8H 11/03/23 Metoprolol Succinate [Metoprolol Succinate ER] 25 mg PO QAM 11/03/23 Tamsulosin [Flomax] 0.4 mg PO HS 11/03/23 methocarbamoL 750 mg PO DAILY 11/03/23 HYDROcodone/APAP 5-325MG [[place] 5-325] 1 tab PO BID PRN 30 Days #60 tab 11/22/23 HYDROcodone/APAP 5-325MG [[place] 5-325] 1 tab PO BID PRN 30 Days #60 tab 11/22/23 Controlled Substance Measures - Controlled Substance Measures Is patient prescribed a controlled substance at discharge?: Yes When asked, does pt state using other controlled substances?: No If prescribed controlled substance>3 days was MAPS reviewed?: Yes If Rx opioid, was Start Talking consent form obtained?: Yes Was information provided regarding opioid addiction?: Yes
== END ==
LOC: PNWHC3 10:23
PROVIDERS: ATTEND Specialist
DX: M51.36 Other intervertebral disc degeneration, lumbar region (principal); G44.86 Cervicogenic headache; M54.81 Occipital neuralgia; G89.29 Other chronic pain
CPT/HCPCS: 99211

== ENCOUNTER → 2024-01-17 | Outpatient (CLI) | payer MEDICARE ==
[2024-01-17 13:22] VITALS: BP 155/102; PULSE 61; RESP 16; TEMP 97
--- NOTE | 2024-01-17 14:19 | P.PAINPG ---
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 Pain level is currently at 4 /10 in intensity, sharp in character, predominantly axial, localized in the R lumbar spine without radia tion of pain. Pain is provoked w being upright for periods of 15 min or more. Pain is alleviated with massage therapy x 2 wks which he is currently in, PT x 5 wks in Aug- Sep 2023, injections, heat, ice, medications, topical, use of a walker for ambulatory assistance, reclining and rest. Oswestry axial pain score of 22. Interventional pain procedures completed include L MILDRED x1, LEXY L5-S1 x1 Patient is currently on Molt 5/325mg, Baclofen, Ibu, Tyl Arthritis, Lidoderm Patient denies any side effects of the medication(s), denies excessive drowsiness or sleepiness, denies suicidal ideation and reports that the current pain medication is helping to control the pain and improve activities of daily living. Patient denies any motor or sensory deficits. Patient denies any fever or night sweats, denies any change in the bowel movements or urination. Physical Examination: -Constitutional: Cooperative. Not in acute distress . - Neurologic: Cranial nerve II to XII intact. No focal neurological de ficits. - Psychatric: Alert & oriented x 3. Matching mood & appropriate affect. Judgment and insight intact. - Musculoskeletal: Cervical spine: Muscle bulk/ tone/ strength in the bilateral upper extremities normal Vertebral body tenderness to palpation Spurling test positive Distraction test positive Facet loading test positive Thoracic spine Muscle bulk / tone/ strength in the bilateral paraspinal muscles normal Vertebral body tender to palpation over Facet loading test positive Lumbar spine: Motor bulk/ tone/ strength lower extremities , thigh and legs : 5/5 Deep tendon reflexes : Normal Knee Jerk. Normal Ankle Jerk . 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 Opiate/ narcotic agreement signed 11/22/23. All patient questions answered I have spent less than 30 minutes on patient care today. Dr Long was available by phone for the evaluation of this patient. The time was used to review the medical records including relevant urine studies and Prescription his tory (MAPs), review of the available imaging, evaluation and examination of the patient, coordination of care with the medical staff and if applicable referring physicians, as well as creation of the medical record PQRS Narrative: Smoking Status Never smoker Hx Alcohol Use (MH) No Home Medications: Ambulatory Orders Levothyroxine Sodium [Synthroid] 50 mcg PO QAM 05/26/15 amLODIPine [Norvasc] 5 mg PO QAM 05/26/15 lisinopriL [Prinivil] 20 mg PO BID 05/26/15 Furosemide [Lasix] 20 mg PO QAM 07/20/17 Apixaban [Eliquis] 5 mg PO BID 02/05/21 Vit C/E/Cuperic/Zinc/Lutein [Preservision Lutein Softgel] 1 tab PO DAILY 08/19/22 Acetaminophen [Tylenol] 650 mg PO Q6H PRN 02/21/23 Glucosamine/Chondr Ferreira A Sod [Osteo Bi-Flex Caplet] 1 tab PO DAILY 02/21/23 Ibuprofen [Motrin] 800 mg PO TID 02/21/23 Mv-Min/Folic/K1/Lycopen/Lutein [Centrum Silver Men Tablet] 1 tab PO DAILY 02/21/23 Cephalexin [Keflex] 500 mg PO Q8H 11/03/23 Metoprolol Succinate [Metoprolol Succinate ER] 25 mg PO QAM 11/03/23 Tamsulosin [Flomax] 0.4 mg PO HS 11/03/23 methocarbamoL 750 mg PO DAILY 11/03/23 HYDROcodone/APAP 5-325MG [Molt 5-325] 1 tab PO BID PRN 30 Days #60 tab 12/09/23 HYDROcodone/APAP 5-325MG [Molt 5-325] 1 tab PO BID PRN 30 Days #60 tab 12/09/23 Controlled Substance Measures - Controlled Substance Measures Is patient prescribed a controlled substance at discharge?: No
== END ==
LOC: PNWHC3 10:14
PROVIDERS: ATTEND Specialist
DX: M47.816 Spondylosis without myelopathy or radiculopathy, lumbar region (principal); M54.81 Occipital neuralgia; G44.86 Cervicogenic headache; G89.29 Other chronic pain
CPT/HCPCS: 99211

== ENCOUNTER 2024-03-14 04:24 | Emergency (ER) | payer MEDICARE ==
[2024-03-14] MEDS: KETOROLAC 15 MG/ML 1 ML VIAL IVP STA (05:03)
[2024-03-14] MEDS: PANTOPRAZOLE 40 MG/10 ML VIAL IVP STA (05:03)
[2024-03-14] MEDS: ONDANSETRON 4 MG/2 ML VIAL IVP STA (05:03)
[2024-03-14] MEDS: SODIUM CHLORIDE 0.9% 1,000 ML IV STA (05:04)
--- NOTE | 2024-03-14 05:40 | CT ---
EXAMINATION TYPE: CT abdomen pelvis wo con DATE OF EXAM: 03/14/2024 HISTORY: Pt presents with left sided flank pain that started around 0100. pt has a history of kidney stones CT DLP: 755.1 mGycm. Automated Exposure Control for Dose Reduction was Utilized. TECHNIQUE: CT scan of the abdomen and pelvis is performed without oral or IV contrast. COMPARISON: Prior CT September 13, 2019 FINDINGS: Within the limitations of a non-contrast study, the following observations are made. LUNG BASES: Mild cardiomegaly with right-sided pacemaker wires is partially imaged. Approximately 2.7 cm right-sided pericardial cyst axial image 14 is increased in size from prior LIVER/GB: No significant abnormality is appreciated. PANCREAS: No significant abnormality is seen. SPLEEN: No significant abnormality is seen. ADRENALS: No significant abnormality is seen. KIDNEYS: There are approximate 4 -- 1 to 2 mm nonobstructing right renal calculi. No right-sided hydr onephrosis or obstructing ureteral calculi.. There is 2 mm calculus in distal left ureter axial image 135 causing mild left-sided hydronephrosis BOWEL: A few scattered diverticula in the left colon with more prominent diverticulosis in the sigmoi d colon. No CT evidence for acute diverticulitis. LYMPH NODES: No greater than 1cm abdominal lymph nodes are appreciated. Prostate: Normal-sized prostate. OSSEOUS STRUCTURES: Multilevel facet arthropathy lower lumbar spine. Moderate disc space narrowing an d anterior spurring with vacuum disc phenomenon right L3-L4 and L4-L5 levels. Lower thoracic spinal s timulator device is now present OTHER: Some tortuous course to the aorta and branch vessels with some ectasia of the common iliac art eries also noted bilaterally. Mild calcified plaque is present. Moderate-sized fat-containing left in guinal hernia. IMPRESSION: There is 2 mm calculus in distal left ureter causing mild left-sided hydronephrosis.
--- NOTE | 2024-03-14 05:48 | ED ---
General Adult HPI - General Chief complaint: Abdominal Pain Stated complaint: side pain Time Seen by Provider: 03/14/24 04:38 Source: patient, RN notes reviewed, old records reviewed Mode of arrival: wheelchair Limitations: no limitations - History of Present Illness Initial comments: Patient is a 88-year-old male who presents emergency department complaining of left flank pain. Sudden in onset starting approximately 1 AM this morning. Den ies any radiation of the pain that is significant but does state it somewhat goes down towards his groin. Reminds him of the pain that he had when he had a kidney stone. Denies any dysuria or hematuria. Denies any emesis but does endorse nausea. Denies constipation or diarrhea. Denies any chest pain or shortness of breath. No fevers or chills. Presents for further evaluation at this time. Describes pain as a sharp sensation located in the left flank. - Related Data Home Medications Medication Instructions Recorded Confirmed Levothyroxine Sodium [Synthroid] 50 mcg PO QAM 05/26/15 11/22/23 amLODIPine [Norvasc] 5 mg PO QAM 05/26/15 11/22/23 lisinopriL [Prinivil] 20 mg PO BID 05/26/15 11/22/23 Furosemide [Lasix] 20 mg PO QAM 07/20/17 11/22/23 Apixaban [Eliquis] 5 mg PO BID 02/05/21 11/22/23 Vit C/E/Cuperic/Zinc/Lutein 1 tab PO DAILY 08/19/22 11/22/23 [Preservision Lutein Softgel] Acetaminophen [Tylenol] 650 mg PO Q6H PRN 02/21/23 11/22/23 Glucosamine/Chondr Ferreira A Sod [Osteo 1 tab PO DAILY 02/21/23 11/22/23 Bi-Flex Caplet] Ibuprofen [Motrin] 800 mg PO TID 02/21/23 11/22/23 Mv-Min/Folic/K1/Lycopen/Lutein 1 tab PO DAILY 02/21/23 11/22/23 [Centrum Silver Men Tablet] Cephalexin [Keflex] 500 mg PO Q8H 11/03/23 11/22/23 Metoprolol Succinate [Metoprolol 25 mg PO QAM 11/03/23 11/22/23 Succinate ER] Tamsulosin [Flomax] 0.4 mg PO HS 11/03/23 11/22/23 methocarbamoL 750 mg PO DAILY 11/03/23 11/22/23 Previous Rx's Medication Instructions Recorded HYDROcodone/APAP 5-325MG [[place] 1 tab PO BID PRN 30 Days #60 tab 12/09/23 5-325] HYDROcodone/APAP 5-325MG [[place] 1 tab PO BID PRN 30 Days #60 tab 12/09/23 5-325] Tamsulosin HCl [Flomax] 0.4 mg PO DAILY 14 Days #14 cap 03/14/24 Allergies Allergy/AdvReac Type Severity Reaction Status Date / Time No Known Allergies Allergy Verified 03/14/24 04:26 Review of Systems ROS Statement: Those systems with pertinent positive or pertinent negative responses have been documented in the HPI. Review of Systems: CONST: Denies fever EYES: Denies blurry vision ENT: Denies nasal congestion C/V: Denies Chest pain RESP: Denies shortness of breath GI: Endorses abdominal pain : Denies dysuria SKIN: Denies rash. MSK: Denies joint pain. NEURO: Denies headache ROS Other: All systems not noted in ROS Statement are negative. 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 Past Anesthesia/Blood Transfusion Reactions: No Reported Reaction Additional Past Anesthesia/Blood Transfusion Reaction / Comment(s): no blood tranfusions Type of Cardiac Device: Permanent Pacemaker Device Placement Date:: 06/08 Past Psychological History: Anxiety Smoking Status: Never smoker Past Alcohol Use History: None Reported Past Drug Use History: None Reported - Past Family History Mother Family Medical History: No Reported History Additional Family Medical History / Comment(s): aneurysm Father Family Medical History: No Reported History General Exam - General Exam Comments Initial Comments: General: Appears in mild to moderate distress secondary to abdominal pain. HEAD: Normal with no signs of head trauma. EYES: PERRLA, EOMI ENT: Hearing grossly intact, normal oropharynx. RESPIRATORY: Clear breath sounds bilaterally. No wheezes, rales, or rhonchi. C/V: Regular rate and rhythm. S1 and S2 auscultated, no edema, peripheral pulses 2+ and intact throughout ABD: Abdomen is soft, nondistended, tender to palpation in the left flank. No guarding. No rebound tenderness. No peritoneal signs. EXT: Normal range of motion, no obvious deformity SKIN: No rashes or lesions observed on exposed skin. NEURO: Alert and oriented x 4. No focal deficits. Limitations: no limitations Course Vital Signs 03/14/24 03/14/24 04:26 06:44 Temperature 97.3 F L Pulse Rate 63 64 Respiratory 22 18 Rate Blood Pressure 165/102 131/83 O2 Sat by Pulse 93 L 93 L Oximetry Medical Decision Making - Medical Decision Making Was pt. sent in by a medical professional or institution (, PA, LEGAL PARAPROFESSIONAL, urgent care, hospital, or care home...) When possible be specific @ -No Did you speak to anyone other than the patient for history (EMS, parent, family, police, friend...)? What history was obtained from this source @ -No Did you review nursing and triage notes (agree or disagree)? Why? @ -I reviewed and agree with nursing and triage notes Were old charts reviewed (outside hosp., previous admission, EMS record, old EKG, old radiological studies, urgent care reports/EKG's, care home records)? Report findings @ -No old charts were reviewed Differential Diagnosis (chest pain, altered mental status, abdominal pain women, abdominal pain men, vaginal bleeding, weakness, fever, dyspnea, syncope, headache, dizziness, GI bleed, back pain, seizure, CVA, palpatations, mental health, musculoskeletal)? @ -Differential Abdominal Pain Men: Appendicitis, cholecystitis, diverticulosis, ischemic bowel, pancreatitis, hepatitis, UTI, gastroenteritis, AAA, incarcerated hernia, bowel obstruction, constipation, inflammatory bowel, hepatitis, peptic ulcer disease, splenic infarction, perforated viscus, testicular torsion, this is not meant to be an all-inclusive list EKG interpreted by me (3pts min.). @ -None done X-rays interpreted by me (1pt min.). @ -None done CT interpreted by me (1pt min.). @ -CT imaging reveals a 2 mm ureteral lithiasis at the left distal ureter causing mild left-sided hydronephrosis. U/S interpreted by me (1pt. min.). @ -None done What testing was considered but not performed or refused? (CT, X-rays, U/S, labs)? Why? @ -None What meds were considered but not given or refused? Why? @ -None Did you discuss the management of the patient with other professionals (professionals i.e. DrJose, PA, LEGAL PARAPROFESSIONAL, lab, RT, psych nurse, social service liaison, call center consultant, teacher, quarantine officer, showcase trimmer)? Give summary @ -No Was smoking cessation discussed for >3mins.? @ -No Was critical care preformed (if so, how long)? @ -No Were there social determinants of health that impacted care today? How? (Homelessness, low income, unemployed, alcoholism, drug addiction, transportation, low edu. Level, literacy, decrease access to med. care, [facility] [facility], rehab)? @ -No Was there de-escalation of care discussed even if they declined (Discuss DNR or withdrawal of care, Hospice)? DNR status @ -No What co-morbidities impacted this encounter? (DM, HTN, Smoking, COPD, CAD, Cancer, CVA, ARF, Chemo, Hep., AIDS, mental health diagnosis, sleep apnea, morbid obesity)? @ -None Was patient admitted / discharged? Hospital course, mention meds given and route, prescriptions, significant lab abnormalities, going to OR and other pertinent info. @ -Based on the patient's presentation and physical exam, patient presents emergency department complaining of left flank pain. Concern for kidney stones. Vital signs within acceptable limits. Patient be given IV fluids, Zofran, Protonix, Toradol. Patient was in agreement this plan. Vital signs are within acceptable limits. CT reveals 2 mm calculus in the distal left ureter causing mild left-sided hydronephrosis.Patient's laboratory studies unremarkable. Urinalysis shows small amount of blood but no evidence of infection. Patient has a slight LUIS ENRIQUE which was treated with IV fluids. Patient also slightly hypokalemic which was treated with potassium. On reevaluation, patient is pain-free. We discussed his workup. He will be discharged home at this time. He will be given a strainer as well as prescription for Flomax and follow-up with urology. Patient was in agreement this plan. I will provide the patient with a prescription for Flomax. I instructed the patient to follow up with their PCP in the next 1-3 days. I provided contact information for follow up with urology. I explained that the patient should return to the emergency department if they experience any worsening symptoms. Strict return precautions were discussed with the patient. The patient expressed understanding of these instructions. I answered all questions that the patient had. The patient was discharged home in good condition with their prescriptions and follow up information. Undiagnosed new problem with uncertain prognosis? @ -No Drug Therapy requiring intensive monitoring for toxicity (Heparin, Nitro, Insulin, Cardizem)? @ -No Were any procedures done? @ -No Diagnosis/symptom? @ -Left-sided ureterolithiasis Acute, or Chronic, or Acute on Chronic? @ -Acute Uncomplicated (without systemic symptoms) or Complicated (systemic symptoms)? @ -Complicated Side effects of treatment? @ -None Exacerbation, Progression, or Severe Exacerbation] @ -No Poses a threat to life or bodily function? @ -Unlikely - Lab Data Result diagrams: 03/14/24 04:54 03/14/24 04:54 Lab Results 03/14/24 03/14/24 03/14/24 Range/Units 04:54 04:54 04:54 WBC 7.9 (3.8-10.6) k/uL RBC 5.37 (4.30-5.90) m/uL Hgb 14.4 (13.0-17.5) gm/dL Hct 46.1 (39.0-53.0) % MCV 85.8 (80.0-100.0) fL MCH 26.7 (25.0-35.0) pg MCHC 31.1 (31.0-37.0) g/dL RDW 14.9 (11.5-15.5) % Plt Count 221 (150-450) k/uL MPV 8.1 Neutrophils % 66 % Lymphocytes % 22 % Monocytes % 5 % Eosinophils % 3 % Basophils % 1 % Neutrophils # 5.2 (1.3-7.7) k/uL Lymphocytes # 1.8 (1.0-4.8) k/uL Monocytes # 0.4 (0-1.0) k/uL Eosinophils # 0.3 (0-0.7) k/uL Basophils # 0.1 (0-0.2) k/uL PT 11.0 (10.0-12.5) sec INR 1.0 (<1.2) APTT 25.5 (22.0-30.0) sec Sodium 141 (137-145) mmol/L Potassium 3.4 L (3.5-5.1) mmol/L Chloride 108 H (98-107) mmol/L Carbon Dioxide 24 (22-30) mmol/L Anion Gap 9 mmol/L BUN 24 H (9-20) mg/dL Creatinine 1.29 H (0.66-1.25) mg/dL Est GFR (CKD-EPI)AfAm 58 (>60 ml/min/1.73 sqM) Est GFR (CKD-EPI)NonAf 50 (>60 ml/min/1.73 sqM) Glucose 97 (74-99) mg/dL Calcium 8.9 (8.4-10.2) mg/dL Total Bilirubin 0.5 (0.2-1.3) mg/dL AST 20 (17-59) U/L ALT 18 (4-49) U/L Alkaline Phosphatase 94 (38-126) U/L Total Protein 6.7 (6.3-8.2) g/dL Albumin 4.0 (3.5-5.0) g/dL Amylase 53 (30-110) U/L Lipase 93 (23-300) U/L Urine Color Urine Appearance (Clear) Urine pH (5.0-8.0) Ur Specific [place] (1.001-1.035) Urine Protein (Negative) Urine Glucose (UA) (Negative) Urine Ketones (Negative) Urine Blood (Negative) Urine Nitrite (Negative) Urine Bilirubin (Negative) Urine Urobilinogen (<2.0) mg/dL Ur Leukocyte Esterase (Negative) Urine RBC (0-5) /hpf Urine WBC (0-5) /hpf Ur Squamous Epith Cells (0-4) /hpf Calcium Oxalate Crystal (None) /hpf Hyaline Casts (0-2) /lpf Urine Mucus (None) /hpf 03/14/24 Range/Units 06:18 WBC (3.8-10.6) k/uL RBC (4.30-5.90) m/uL Hgb (13.0-17.5) gm/dL Hct (39.0-53.0) % MCV (80.0-100.0) fL MCH (25.0-35.0) pg MCHC (31.0-37.0) g/dL RDW (11.5-15.5) % Plt Count (150-450) k/uL MPV Neutrophils % % Lymphocytes % % Monocytes % % Eosinophils % % Basophils % % Neutrophils # (1.3-7.7) k/uL Lymphocytes # (1.0-4.8) k/uL Monocytes # (0-1.0) k/uL Eosinophils # (0-0.7) k/uL Basophils # (0-0.2) k/uL PT (10.0-12.5) sec INR (<1.2) APTT (22.0-30.0) sec Sodium (137-145) mmol/L Potassium (3.5-5.1) mmol/L Chloride (98-107) mmol/L Carbon Dioxide (22-30) mmol/L Anion Gap mmol/L BUN (9-20) mg/dL Creatinine (0.66-1.25) mg/dL Est GFR (CKD-EPI)AfAm (>60 ml/min/1.73 sqM) Est GFR (CKD-EPI)NonAf (>60 ml/min/1.73 sqM) Glucose (74-99) mg/dL Calcium (8.4-10.2) mg/dL Total Bilirubin (0.2-1.3) mg/dL AST (17-59) U/L ALT (4-49) U/L Alkaline Phosphatase (38-126) U/L Total Protein (6.3-8.2) g/dL Albumin (3.5-5.0) g/dL Amylase (30-110) U/L Lipase (23-300) U/L Urine Color Yellow Urine Appearance Clear (Clear) Urine pH 6.0 (5.0-8.0) Ur Specific [place] 1.017 (1.001-1.035) Urine Protein Trace H (Negative) Urine Glucose (UA) Negative (Negative) Urine Ketones Negative (Negative) Urine Blood Small H (Negative) Urine Nitrite Negative (Negative) Urine Bilirubin Negative (Negative) Urine Urobilinogen <2.0 (<2.0) mg/dL Ur Leukocyte Esterase Negative (Negative) Urine RBC 16 H (0-5) /hpf Urine WBC 3 (0-5) /hpf Ur Squamous Epith Cells <1 (0-4) /hpf Calcium Oxalate Crystal Occasional H (None) /hpf Hyaline Casts 23 H (0-2) /lpf Urine Mucus Occasional H (None) /hpf Disposition Clinical Impression: Ureterolithiasis Disposition: HOME SELF-CARE Condition: Good Instructions (If sedation given, give patient instructions): Kidney Stones (ED) Prescriptions: Tamsulosin HCl [Flomax] 0.4 mg PO DAILY 14 Days #14 cap Is patient prescribed a controlled substance at d/c from ED?: No Referrals: Zach Villatoro MD [Primary Care Provider] - 1-2 days Sachin Torrez MD [STAFF PHYSICIAN] - 1-2 days Time of Disposition: 07:00
[2024-03-14 05:51] LABS: Amylase 53 U/L (30-110); Chloride 108 mmol/L (98-107); Glucose 97 mg/dL (74-99); Total Protein 6.7 g/dL (6.3-8.2)
[2024-03-14 05:52] LABS: ALT 18 U/L (4-49); AST 20 U/L (17-59); African American GFR (CKD) 58 (>60 ml/min/1.73 sqM); Alkaline Phosphatase 94 U/L (38-126); Anion Gap 9 mmol/L; Blood Urea Nitrogen 24 mg/dL (9-20); Calcium 8.9 mg/dL (8.4-10.2); Carbon Dioxide 24 mmol/L (22-30); Lipase 93 U/L (23-300); Non-African American GFR(CKD) 50 (>60 ml/min/1.73 sqM); Potassium 3.4 mmol/L (3.5-5.1); Sodium 141 mmol/L (137-145); Total Bilirubin 0.5 mg/dL (0.2-1.3)
[2024-03-14 06:03] LABS: Partial Thromboplastin Time 25.5 sec (22.0-30.0)
[2024-03-14 06:07] LABS: Basophils # (A) 0.1 k/uL (0-0.2); Basophils % (A) 1 %; Eosinophils # (A) 0.3 k/uL (0-0.7); Eosinophils % (A) 3 %; HCT 46.1 % (39.0-53.0); HGB 14.4 gm/dL (13.0-17.5); Lymphocytes # (A) 1.8 k/uL (1.0-4.8); Lymphocytes % (A) 22 %; MCH 26.7 pg (25.0-35.0); MCHC 31.1 g/dL (31.0-37.0); MCV 85.8 fL (80.0-100.0); Mean Platelet Volume 8.1; Monocytes # (A) 0.4 k/uL (0-1.0); Monocytes % (A) 5 %; Neutrophils # (A) 5.2 k/uL (1.3-7.7); Neutrophils % (A) 66 %; Platelet Count 221 k/uL (150-450); RBC 5.37 m/uL (4.30-5.90); RDW 14.9 % (11.5-15.5); WBC 7.9 k/uL (3.8-10.6)
[2024-03-14 06:53] LABS: Appearance,Urine Clear (Clear); Bilirubin,Urine Negative (Negative); Blood,Urine Small (Negative); Calcium Oxalate Crystals,Urine Occasional /hpf; Color,Urine Yellow; Glucose,Urine (UA) Negative (Negative); Hyaline Casts,Urine 23 /lpf (0-2); Ketones,Urine Negative (Negative); Leukocyte Esterase,Urine Negative (Negative); Mucus,Urine Occasional /hpf; Nitrite,Urine Negative (Negative); Protein,Urine Trace (Negative); RBC,Urine 16 /hpf (0-5); Specific Gravity,Urine 1.017 (1.001-1.035); Squamous Epithelial Cell,Urine <1 /hpf (0-4); Urobilinogen,Urine <2.0 mg/dL (<2.0); WBC,Urine 3 /hpf (0-5)
[2024-03-14 06:58] VITALS: RESP 18
[2024-03-14] MEDS: POTASSIUM CHLORIDE ER 20 MEQ TAB.ER PO STA (06:59)
[2024-03-14] MEDS: TAMSULOSIN 0.4 MG CAP.ER.24H PO STA (07:07)
[2024-03-14] MEDS: ONDANSETRON 4 MG ODT STARTER PACK 2 TAB BTL PO STA (07:07)
[2024-03-14 07:52] VITALS: BP 178/82; PULSE 66; TEMP 97.9
== END 2024-03-14 07:45 | disposition home or self-care (01) ==
LOC: EC 04:24
DX: N13.2 Hydronephrosis with renal and ureteral calculous obstruction (principal); N17.9 Acute kidney failure, unspecified; E87.6 Hypokalemia
CPT/HCPCS: 36415; 80053; 82150; 83690; 85025; 85610; 85730; 81001; 74176; 99284; 96374; 96375 ×2; 96361; J2405; J1885; S0119; C9113

== ENCOUNTER 2024-10-29 23:16 | Emergency (ER) | payer MEDICARE ==
--- NOTE | 2024-10-29 23:23 | ED ---
Fall HPI - General Stated Complaint: FALL Time Seen by Provider: 10/29/24 23:19 Source: RN notes reviewed, old records reviewed Mode of arrival: EMS Limitations: no limitations - History of Present Illness Initial Comments: This is an 89-year-old male after a fall from standing fall from standing on the left arm. Severe left arm pain positive hitting of head and patient does have head injury on blood thinners Complaint: fall -: minutes(s) Fall From: standing When Fall Occurred: 1 hour [employer] Fall Witnessed: yes, by family Place Fall Occurred: home Loss of Consciousness: none Prolonged Down Time?: no Symptoms Prior to Fall: none Location: head Location - Extremities: Left: Forearm Severity: severe Quality: sharp, aching Context: tripped/slipped Associated Symptoms: denies - Related Data Home Medications Medication Instructions Recorded Confirmed Levothyroxine Sodium [Synthroid] 50 mcg PO QAM 05/26/15 11/22/23 amLODIPine [Norvasc] 5 mg PO QAM 05/26/15 11/22/23 lisinopriL [Prinivil] 20 mg PO BID 05/26/15 11/22/23 Furosemide [Lasix] 20 mg PO QAM 07/20/17 11/22/23 Apixaban [Eliquis] 5 mg PO BID 02/05/21 11/22/23 Vit C/E/Cuperic/Zinc/Lutein 1 tab PO DAILY 08/19/22 11/22/23 [Preservision Lutein Softgel] Acetaminophen [Tylenol] 650 mg PO Q6H PRN 02/21/23 11/22/23 Glucosamine/Chondr Ferreira A Sod [Osteo 1 tab PO DAILY 02/21/23 11/22/23 Bi-Flex Caplet] Ibuprofen [Motrin] 800 mg PO TID 02/21/23 11/22/23 Mv-Min/Folic/K1/Lycopen/Lutein 1 tab PO DAILY 02/21/23 11/22/23 [Centrum Silver Men Tablet] Cephalexin [Keflex] 500 mg PO Q8H 11/03/23 11/22/23 Metoprolol Succinate [Metoprolol 25 mg PO QAM 11/03/23 11/22/23 Succinate ER] Tamsulosin [Flomax] 0.4 mg PO HS 11/03/23 11/22/23 methocarbamoL 750 mg PO DAILY 11/03/23 11/22/23 Previous Rx's Medication Instructions Recorded HYDROcodone/APAP 5-325MG [[facility] 1 tab PO BID PRN 30 Days #60 tab 12/09/23 5-325] HYDROcodone/APAP 5-325MG [[facility] 1 tab PO BID PRN 30 Days #60 tab 12/09/23 5-325] Tamsulosin HCl [Flomax] 0.4 mg PO DAILY 14 Days #14 cap 03/14/24 Allergies Allergy/AdvReac Type Severity Reaction Status Date / Time No Known Allergies Allergy Verified 10/29/24 23:32 Review of Systems ROS Statement: Those systems with pertinent positive or pertinent negative responses have been documented in the HPI. ROS Other: All systems not noted in ROS Statement are negative. 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 Past Anesthesia/Blood Transfusion Reactions: No Reported Reaction Additional Past Anesthesia/Blood Transfusion Reaction / Comment(s): no blood tranfusions Type of Cardiac Device: Permanent Pacemaker Device Placement Date:: 06/08 Past Psychological History: Anxiety Smoking Status: Never smoker Past Alcohol Use History: None Reported Past Drug Use History: None Reported - Past Family History Mother Family Medical History: No Reported History Additional Family Medical History / Comment(s): aneurysm Father Family Medical History: No Reported History General Exam - General Exam Comments Initial Comments: GCS of 15 Left shoulder deformity General appearance: alert, in no apparent distress Head exam: Present: atraumatic, normocephalic, normal inspection Eye exam: Present: normal appearance, PERRL, EOMI. Absent: scleral icterus, conjunctival injection, periorbital swelling ENT exam: Present: normal exam, mucous membranes moist Neck exam: Present: normal inspection. Absent: tenderness, meningismus, lymphadenopathy Respiratory exam: Present: normal lung sounds bilaterally. Absent: respiratory distress, wheezes, rales, rhonchi, stridor Cardiovascular Exam: Present: regular rate, normal rhythm, normal heart sounds. Absent: systolic murmur, diastolic murmur, rubs, gallop, clicks GI/Abdominal exam: Present: soft, normal bowel sounds. Absent: distended, tenderness, guarding, rebound, rigid Extremities exam: Present: tenderness, normal capillary refill, other (Significant deformity left upper extremity). Absent: full ROM, pedal edema, joint swelling, calf tenderness Back exam: Present: normal inspection Neurological exam: Present: alert, oriented X3, CN II-XII intact Psychiatric exam: Present: normal affect, normal mood Skin exam: Present: warm, dry, intact, normal color. Absent: rash Course Vital Signs 10/29/24 10/30/24 10/30/24 23:50 00:05 01:00 Pulse Rate 74 66 82 Respiratory 18 16 16 Rate Blood Pressure 158/105 154/81 152/92 O2 Sat by Pulse 92 L 91 L 95 Oximetry - Reevaluation(s) Reevaluation #1: 10/29/24 23:22 Medical records reviewed 10/29/24 23:23 Cold coag called prehospital secondary to fall on blood thinners Reevaluation #2: 10/29/24 23:59 Patient has improved pain Reevaluation #3: 10/29/24 23:59 Patient informed of results and questions answered Reevaluation #4: Was pt. sent in by a medical professional or institution ([facility], FORM SETTER HELPER, urgent care, hospital, or long term...) When possible be specific @ -no Did you speak to anyone other than the patient for history (EMS, parent, family, police, friend...)? What history was obtained from this source @ -no Did you review nursing and triage notes (agree or disagree)? Why? @ -agree Are old charts reviewed (outside hosp., previous admission, EMS record, old EKG, old radiological studies, urgent care reports/EKG's, long term records)? Report findings @ -yes Differential Diagnosis (chest pain, altered mental status, abdominal pain women, abdominal pain men, vaginal bleeding, weakness, fever, dyspnea, syncope, headache, dizziness, GI bleed, back pain, seizure, CVA, palpatations, mental health, musculoskeletal)? @ -prior EKG interpreted by me (3pts min.). @ -no X-rays interpreted by me (1pt min.). @ -yes periprosthetic left shoulder fracture CT interpreted by me (1pt min.). @ -Yes negative for acute disease U/S interpreted by me (1pt. min.). @ -no What testing was considered but not performed or refused? (CT, X-rays, U/S, labs)? Why? @ -none What meds were considered but not given or refused? Why? @ -none Did you discuss the management of the patient with other professionals (professionals i.e. DrJose, PA, FORM SETTER HELPER, lab, RT, psych nurse, criminal justice social worker, irish moss gatherer, teacher, education officer, correctional case manager)? Give summary @ -no Was smoking cessation discussed for >3mins.? @ -no Was critical care preformed (if so, how long)? @ -no Were there social determinants of health that impacted care today? How? (Homelessness, low income, unemployed, alcoholism, drug addiction, transportation, low edu. Level, literacy, decrease access to med. care, fpc, rehab)? @ -none Was there de-escalation of care discussed even if they declined (Discuss DNR or withdrawal of care, Hospice)? DNR status @ -no What co-morbidities impacted this encounter? (DM, HTN, Smoking, COPD, CAD, Cancer, CVA, ARF, Chemo, Hep., AIDS, mental health diagnosis, sleep apnea, morbid obesity)? @ -none Was patient admitted / discharged? Hospital course, mention meds given and route, prescriptions, significant lab abnormalities, going to OR and other perti nent info. @ - 89 male to ER after a fall fall with left shoulder pain head injury, head injury on blood thinners, patient has left periprosthetic fracture of shoulder replacement, placing his sling and patient will be given pain control and can be discharged home Discharge Undiagnosed new problem with uncertain prognosis? @ -no Drug Therapy requiring intensive monitoring for toxicity (Heparin, Nitro, Insulin, Cardizem)? @ -no Were any procedures done? @ -no Diagnosis/symptom? @ -Left periprosthetic shoulder fracture Acute, or Chronic, or Acute on Chronic? @ -Acute Uncomplicated (without systemic symptoms) or Complicated (systemic symptoms)? @ -Complicated Side effects of treatment? @ -no Exacerbation, Progression, or Severe Exacerbation? @ -exacerbation Poses a threat to life or bodily function? How? (Chest pain, USA, MD, pneumonia, PE, COPD, DKA, ARF, appy, cholecystitis, CVA, Diverticulitis, Homicidal, Suicidal, threat to staff... and all critical care pts) @ -yes extremes of age with falls Procedures - Orthopedic Splinting/Casting Injury #1 Side: left Upper Extremity Injury Location: shoulder Upper Extremity Immobilizer: sling/shoulder immobilizer Medical Decision Making - Medical Decision Making 89 male to ER after a fall fall with left shoulder pain head injury, head injury on blood thinners, patient has left periprosthetic fracture of shoulder replacement, placing his sling and patient will be given pain control and can be discharged home - Radiology Data Radiology results: report reviewed (Brain C-spine chest and pelvis x-ray nega tive for acute disease x-ray left humerus positive humerus fracture periprosthetic), image reviewed Disposition Clinical Impression: Fall, Fracture of left humerus, Periprosthetic fracture around internal prosthetic left shoulder joint, sequela, Head injury Disposition: HOME SELF-CARE Condition: Good Instructions (If sedation given, give patient instructions): Arm Fracture in Adults (ED), Fall Prevention for Older Adults (ED), Proximal Humerus Fracture (ED) Is patient prescribed a controlled substance at d/c from ED?: No Referrals: Gianluca Bautista DO [Doctor of Osteopathic Medicine] - 1-2 days Time of Disposition: 00:10
[2024-10-30] MEDS: SODIUM CHLORIDE 0.9% 500 ML 500 ML IV STA (00:03)
[2024-10-30] MEDS: HYDROmorphone 1 MG/ML 1 ML SYRINGE IVP STA (00:04)
[2024-10-30 00:07] VITALS: RESP 16
--- NOTE | 2024-10-30 00:17 | CT ---
EXAM: CT Head Without Intravenous Contrast CLINICAL HISTORY: ITS.REASON CT Reason: fall TECHNIQUE: Axial computed tomography images of the head/brain without intravenous contrast. CTDI is 45.3 mGy and DLP is 1159 mGy-cm. This CT exam was performed using one or more of the following dose reduction techniques: automated exposure control, adjustment of the mA and/or kV according to patient size, and/or use of iterative reconstruction technique. COMPARISON: No relevant prior studies available. FINDINGS: Brain: Unremarkable. No hemorrhage. Mild nonspecific white matter changes. No edema. Ventricles: Mild ventriculomegaly. Bones/joints: Unremarkable. No acute fracture. Soft tissues: Unremarkable. Sinuses: Unremarkable as visualized. No acute sinusitis. Mastoid air cells: Unremarkable as visualized. No mastoid effusion. IMPRESSION: No evidence of acute intracranial pathology. EXAM: CT Cervical Spine Without Intravenous Contrast CLINICAL HISTORY: ITS.REASON CT Reason: fall TECHNIQUE: Axial computed tomography images of the cervical spine without intravenous contrast. CTDI is 15.3 mGy and DLP is 478.8 mGy-cm. This CT exam was performed using one or more of the following dose reduction techniques: automated exposure control, adjustment of the mA and/or kV according to patient size, and/or use of iterative reconstruction technique. COMPARISON: No relevant prior studies available. FINDINGS: Vertebrae: Unremarkable. No acute fracture. Discs/spinal canal/neural foramina: No acute findings. No spinal canal stenosis. Soft tissues: Unremarkable. IMPRESSION: No evidence of acute cervical spine pathology.
[2024-10-30] MEDS: ACETAMINOPHEN IV (For NPO) 1,000 MG in EMPTY BAG 1 BAG IVPB ONE (00:18)
--- NOTE | 2024-10-30 00:21 | XR ---
EXAM: XR Chest, 1 View CLINICAL HISTORY: ITS.REASON XR Reason: pain TECHNIQUE: Frontal view of the chest. COMPARISON: Prior chest x-ray from February 21, 2023. FINDINGS: There is a cardiac pacemaker in left chest wall distally to the right atrium and right ventricle. Lungs: Mild to moderate peribronchial thickening of the central and lower lobe bronchi with increased interstitial opacities throughout the lungs. There is a patchy opacity in the left lower lobe. Pleural space: Unremarkable. No pneumothorax. Heart: Unremarkable. No cardiomegaly. Mediastinum: Unremarkable. Normal mediastinal contour. Bones/joints: Unremarkable. No acute fracture. IMPRESSION: Findings concerning for bronchitis with left lower lobe infiltrate. <MYCVCSECTION> Communications: 10/30/24 00:26 Verify Receipt Verified receipt with nurse on 10/30 00:25 (-05:00)
[2024-10-30] MEDS: HYDROmorphone 0.5 MG/0.5 ML SYRINGE IVP STA (00:24)
[2024-10-30] MEDS: KETOROLAC 15 MG/ML 1 ML VIAL IVP STA (00:26)
[2024-10-30] MEDS: IBUPROFEN 600 MG STARTER PACK 4 TAB BTL PO STA (00:47)
[2024-10-30] MEDS: traMADol 50 MG STARTER PACK 3 TAB BTL PO STA (00:47)
[2024-10-30] MEDS: ACET/COD 300 MG/30 MG STARTER PACK 6 TAB BTL PO STA (00:47)
[2024-10-30 01:36] VITALS: BP 152/92; PULSE 82
--- NOTE | 2024-10-30 01:40 | XR ---
ADDENDUM - Added by Timothy Miner M.D. on 10/30/2024 1:44 AM (-05:00) ADDENDUM: CORRECTED REPORT FOR XR PELVIS: EXAM: XR Pelvis, 1 view CLINICAL HISTORY: Pain TECHNIQUE: Frontal view of the pelvis. COMPARISON: None. FINDINGS: No acute fracture or dislocation. Bones are osteopenic. Abundant stool throughout the visualized lower abdomen and pelvis. Right lower quadrant electronic control device. IMPRESSION: No acute abnormality. EXAM: XR Pelvis, 1 or 2 Views CLINICAL HISTORY: pain TECHNIQUE: Frontal view of the pelvis. COMPARISON: Chest x-ray 02/21/2023. FINDINGS: Redemonstrated right shoulder bipolar shoulder replacement with a intramedullary cam extending to the mid diaphysis. Incompletely healed fracture through the proximal/mid diaphysis proximal to the intramedullary cam. No distal fracture humeral fracture. No dislocation. Bones are osteopenic. Partially visualized left subclavian pacemaker. IMPRESSION: Right shoulder bipolar shoulder replacement with a intramedullary cam extending to the mid diaphysis. Incompletely healed fracture through the proximal/mid diaphysis proximal to the intramedullary cam. No distal fracture humeral fracture. <MYCVCSECTION> Communications: 10/30/24 02:10 Verify Receipt Verified receipt with Rohit Torres for Dr. Beltran on 10/30 02:09 (-05:00)
--- NOTE | 2024-10-30 01:41 | XR ---
EXAM: XR Left Humerus, 2 or More Views CLINICAL HISTORY: pain TECHNIQUE: Frontal and lateral views of the left humerus. COMPARISON: Chest x-ray 02/21/2023. FINDINGS: Redemonstrated right shoulder bipolar shoulder replacement with a intramedullary cam extending to the mid diaphysis. Incompletely healed fracture through the proximal/mid diaphysis proximal to the intramedullary cam. No distal fracture humeral fracture. No dislocation. Bones are osteopenic. Partially visualized left subclavian pacemaker. IMPRESSION: Right shoulder bipolar shoulder replacement with a intramedullary cam extending to the mid diaphysis. Incompletely healed fracture through the proximal/mid diaphysis proximal to the intramedullary cam. No distal fracture humeral fracture.
== END 2024-10-30 01:37 | disposition home or self-care (01) ==
LOC: EC 23:16
DX: S42.302A Unspecified fracture of shaft of humerus, left arm, initial encounter for closed fracture (principal); M97 Periprosthetic fracture around internal prosthetic joint; W01.0XXA Fall on same level from slipping, tripping and stumbling without subsequent striking against object, initial encounter
CPT/HCPCS: 72170; 73060; 71045; 72125; 70450; 99284; 96374; 96375 ×2; J1171 ×2; J0131; J1885